=== PATIENT | male | born 1995 | race Caucasian/White ===

== ENCOUNTER 2017-02-19 17:04 | Inpatient (IN) | payer BC, SELFPAY ==
--- NOTE | ~2017-02-19 | EGD ---
EGD REPORT [facility] [address] [place]. [address] NAME: RY FLOWER : [birth year] STATUS : ADM IN PAT#: [id number] AGE: 21 ADM/REG DATE : 02/19/17 MR#: [id number] REPORT SERV DATE: 02/27/17 DICTATED BY: ARON ESPINOZA DATE: 02/27/17 REPORT STATUS : Draft [facility] DATE: 02/27/17 Endoscopy Center Patient Name: Ry Flower Date of : 1995 Attending MD: ARON ESPINOZA MD Procedure Date No Time: 02/27/2017 Procedure: Upper GI endoscopy Indications: Nausea with vomiting Referring MD: VARINDER CHOWDHURY MD Medicines: Propofol per Anesthesia Complications: No immediate complications. Estimated blood loss: None. Procedure: Pre-Anesthesia Assessment: - After reviewing the risks and benefits, the patient was deemed in satisfactory condition to undergo the procedure. - Prior to the procedure, a History and Physical was performed, and patient medications and allergies were reviewed. The patient's tolerance of previous anesthesia was also reviewed. The risks and benefits of the procedure and the sedation options and risks were discussed with the patient. All questions were answered, and informed consent was obtained. Prior Anticoagulants: The patient has taken no previous anticoagulant or antiplatelet agents. ASA Grade Assessment: I - A normal, healthy patient. After reviewing the risks and benefits, the patient was deemed in satisfactory condition to undergo the procedure. After obtaining informed consent, the endoscope was passed under direct vision. Throughout the procedure, the patient's blood pressure, pulse, and oxygen saturations were monitored continuously. The GIF [id number] was introduced through the mouth, and advanced to the jejunum. The upper GI endoscopy was accomplished without difficulty. The patient tolerated the procedure well. Findings: Savary-Owens Grade II (multiple lesions and folds, noncircumferential, with or without confluence) esophagitis with no bleeding was found. The entire examined stomach and gastroesophageal junction (on retroflexion) were normal. A moderate amount of bile was seen in the body of the stomach and suctioned. The examined duodenum was normal. Biopsies were taken with a cold forceps for histology. Estimated blood loss: none. EGD REPORT [address] [address] NAME: RY FLOWER : [birth year] STATUS : ADM IN [facility]#: [id number] AGE: 21 ADM/REG DATE : 02/19/17 MR#: [id number] REPORT SERV DATE: 02/27/17 DICTATED BY: ARON ESPINOZA DATE: 02/27/17 REPORT STATUS : Draft TRANSCRIBED BY: [employer] DATE: 02/27/17 Impression: - Savary-Owens Grade II reflux esophagitis. - Normal stomach and gastroesophageal junction. - Normal examined duodenum. Biopsied. Recommendation: - Return [facility] to [facility]. - Aggressive PPI therapy. - Await pathology results. - Perform a colonoscopy today. - Patient has a contact number available for emergencies. The signs and symptoms of potential delayed complications were discussed with the patient. Return to normal activities tomorrow. Written discharge instructions were provided to the patient. Procedure Code(s): --- Professional --- 24711, Esophagogastroduodenoscopy, flexible, transoral; with biopsy, single or multiple Diagnosis Code(s): --- Professional --- K21.0, Gastro-esophageal reflux disease with esophagitis R11.2, Nausea with vomiting, unspecified CPT copyright 2013 [employer]. All rights reserved. The codes documented in this report are preliminary and upon roving can tender review may be revised to meet current compliance requirements. ARON ESPINOZA MD 02/27/2017 4:43 PM This report has been signed electronically. Number of Addenda: 0 Note Initiated On: 02/27/2017 4:30 PM Scope Withdrawal Time 0 hours 0 minutes 0 seconds [address] [place] [address]
--- NOTE | ~2017-02-19 | EGD ---
EGD REPORT [facility] [address] [address] NAME: RY FLOWER : [birth year] STATUS : ADM IN PAT#: [id number] AGE: 21 ADM/REG DATE : 02/19/17 MR#: [id number] REPORT SERV DATE: 02/27/17 DICTATED BY: ARON ESPINOZA DATE: 02/27/17 REPORT STATUS : Draft [facility]: [facility] DATE: 02/27/17 Endoscopy Center Patient Name: Ry Flower Date of : 1995 Attending MD: ARON ESPINOZA MD Procedure Date No Time: 02/27/2017 Procedure: Colonoscopy Indications: Hematochezia, Chronic diarrhea, C. difficile colitis Referring MD: VARINDER CHOWDHURY MD Medicines: Propofol per Anesthesia Complications: No immediate complications. Estimated blood loss: Minimal. Procedure: Pre-Anesthesia Assessment: - After reviewing the risks and benefits, the patient was deemed in satisfactory condition to undergo the procedure. - Prior to the procedure, a History and Physical was performed, and patient medications and allergies were reviewed. The patient's tolerance of previous anesthesia was also reviewed. The risks and benefits of the procedure and the sedation options and risks were discussed with the patient. All questions were answered, and informed consent was obtained. Prior Anticoagulants: The patient has taken no previous anticoagulant or antiplatelet agents. ASA Grade Assessment: I - A normal, healthy patient. After reviewing the risks and benefits, the patient was deemed in satisfactory condition to undergo the procedure. After I obtained informed consent, the scope was passed under direct vision. Throughout the procedure, the patient's blood pressure, pulse, and oxygen saturations were monitored continuously. The CF [id number] was introduced through the anus and advanced to the terminal ileum, with identification of the appendiceal orifice and IC valve. The colonoscopy was performed with ease. The ileocecal valve, appendiceal orifice and terminal ileum were photographed. The patient tolerated the procedure well. The quality of the bowel preparation was adequate. The bowel preparation used was oral MOM and a tap water enema. Scope withdrawal time was nearly 8 minutes. Findings: The perianal and digital rectal examinations were normal. Pertinent negatives include normal sphincter tone. EGD REPORT [address] [address] NAME: RY FLOWER : [birth year] STATUS : ADM IN [facility]#: [id number] AGE: 21 ADM/REG DATE : 02/19/17 MR#: [id number] REPORT SERV DATE: 02/27/17 DICTATED BY: ARON ESPINOZA DATE: 02/27/17 REPORT STATUS : Draft TRANSCRIBED BY: [employer] DATE: 02/27/17 The terminal ileum appeared normal. Diffuse severe inflammation characterized by altered vascularity, congestion (edema), erythema, granularity, confluent ulcerations and serpentine ulcerations was found in the rectum, in the sigmoid colon, in the descending colon, in the transverse colon, in the ascending colon and in the cecum. Deep confluent ulcerations were more evident in the left colon. Impression: - The examined portion of the ileum was normal. - Diffuse severe inflammation was found in the rectum, in the sigmoid colon, in the descending colon, in the transverse colon, in the ascending colon and in the cecum secondary to pancolitis. Suspect IBD. - C. difficile colitis. Recommendation: - Return patient to [facility] for ongoing care. - Advance diet. - Continue Vancomycin 250 mg QID. - Continue probiotic. - Add Solumedrol 30 mg IV every 12 hours. - F/U biopsies. - F/U IBD serologies. Procedure Code(s): --- Professional --- 55359, Colonoscopy, flexible, proximal to splenic flexure; diagnostic, with or without collection of specimen(s) by brushing or washing, with or without colon decompression (separate procedure) Diagnosis Code(s): --- Professional --- K52.9, Noninfective gastroenteritis and colitis, unspecified K92.1, Melena CPT copyright 2013 [employer]. All rights reserved. The codes documented in this report are preliminary and upon compliance assistant review may be revised to meet current compliance requirements. ARON ESPINOZA MD 02/27/2017 5:11 PM This report has been signed electronically. Number of Addenda: 0 Note Initiated On: 02/27/2017 4:41 PM EGD REPORT [facility] [address] [place] [address] NAME: LOWELLRY REEDER : [birth year] STATUS : ADM IN PAT#: [id number] AGE: 21 ADM/REG DATE : 02/19/17 MR#: [id number] REPORT SERV DATE: 02/27/17 DICTATED BY: ARON ESPINOZA DATE: 02/27/17 REPORT STATUS : Draft TRANSCRIBED BY: [employer] DATE: 02/27/17 Scope Withdrawal Time 0 hours 7 minutes 59 seconds [address] [address]
--- NOTE | ~2017-02-19 | CN ---
Consultation Report [facility] [address] [place]. [address] NAME: VANI ETIENNE : [birth year] STATUS : ADM IN [facility]#: [id number] AGE: 21 ADM/REG DATE : 02/19/17 MR#: [id number] REPORT SERV DATE: 02/20/17 DICTATED BY: AUSTYN MARINO DATE: 02/20/17 REPORT STATUS : Draft TRANSCRIBED BY: [employer] DATE: 02/20/17 DATE OF CONSULTATION: 02/20/2017 HISTORY OF PRESENT ILLNESS: This is a 21-year-old white male I am seeing for Dr. Tyrel Jerry. The patient has had diarrhea for the last week. Had been on some p.o. Flagyl which he had not tolerated well. Outpatient diagnosis of C. diff. Began having lot of nausea and vomiting. Also began having some bleeding per rectum and the diarrhea persisted. No fever. Hospitalist then converted to IV Flagyl and p.o. vancomycin. Nausea and vomiting persisted last night, it is somewhat better today. He is having 15 to 16 stools daily mixed with blood. He was given at [facility] a week ago some IV fluids and some Levsin and some Zofran. He has lost about 12 pounds over the last couple of weeks. PAST HISTORY: He has taken a quite number of antibiotics for clindamycin and rifampin for acne. ALLERGIES: HE IS ALLERGIC TO . PAST SURGICAL HISTORY: Adenoids removed. SOCIAL HISTORY: Negative EtOH or nicotine. FAMILY HISTORY: Negative for IBD. Negative for colon cancer. PHYSICAL EXAMINATION: GENERAL: Well-developed, well-nourished, white male, alert and oriented x3. HEENT: Anicteric. NECK: Negative. CHEST: Clear to percussion. HEART: Regular rate and rhythm without murmur or gallop. ABDOMEN: Soft. Mild tenderness in the left lower quadrant. Bowel sounds active. EXTREMITIES: Grossly intact. NEUROLOGIC: Grossly intact. LABORATORY DATA: White count of 11,500, hemoglobin 13.9. ASSESSMENT: 1. Clostridium difficile diarrhea. 2. Gastrointestinal bleed, rectal bleeding. 3. Nausea and vomiting. 4. Dehydration. PLAN: Continue his current IV Flagyl and p.o. vancomycin. Continue IV hydration. We will also begin probiotics because of the amount of bleeding, may well need colonoscopy once he is cleared of C. diff to evaluate the bleeding. Consultation Report [facility] [address] [place] [address]. [address] NAME: VANI ETIENNE : [birth year] STATUS : ADM IN PAT#: [id number] AGE: 21 ADM/REG DATE : 02/19/17 MR#: [id number] REPORT SERV DATE: 02/20/17 DICTATED BY: AUSTYN MARINO DATE: 02/20/17 REPORT STATUS : Draft TRANSCRIBED BY: JEANNE DATE: 02/20/17 Thank you very much for the consultation. DC/JEANNE Austyn Marino M.D. / [id number] CC: MD Kunal Sheldon M.D. Alan Shikoh, M.D.
--- NOTE | ~2017-02-19 | DS ---
Discharge Summary [facility] [address] [place]. [address] NAME: VANI ETIENNE : [birth year] STATUS : DIS IN PAT#: [id number] AGE: 21 ADM/REG DATE : 02/19/17 MR#: [id number] REPORT SERV DATE: 03/02/17 DICTATED BY: MEGHAN GRANT MOSES DATE: 03/01/17 REPORT STATUS : Draft TRANSCRIBED BY: MODL DATE: 03/01/17 ADMISSION DATE: 02/19/2017 DISCHARGE DATE: 03/01/2017 This dictation is an addition to interim discharge summary dictated by Dr. Kang on 02/23/2017. HOSPITAL COURSE: I assumed care of patient on 02/24/2017. At the time of my assumption of care, GI was already following patient. Thought process at that time, patient was diagnosed with C.diff colitis, which was refractory to metronidazole. Patient was currently on vancomycin and dose has been increased by GI. Colonoscopy was not done at that time because of severe infection. Patient was status post increasing vancomycin. Patient's symptoms progressively started to improve. Given the improvement, GI decided to do an upper and lower endoscopy. The upper endoscopy was relatively normal; however, the lower endoscopy noted pancolitis with deep confluent ulcerations. However, injury did spare the terminal ilium. Patient continued to improve, remained hemodynamically stable, was started on p.o. diet which he has tolerated. Given his remarkable improvement, patient has been cleared by GI for discharge. He remained hemodynamically stable and from the hospitalist standpoint, patient will be discharged with close followup with GI for outpatient continuation of management. Plan has been discussed with patient and family who voiced understanding and are agreeable with this plan. DISCHARGE DIAGNOSES: 1. Pancolitis. 2. Clostridium difficile colitis. 3. Nausea, vomiting. 4. Tachycardia. DISCHARGE PHYSICAL EXAMINATION: VITAL SIGNS: Blood pressure 111/59 with a pulse of 61, respirations 12, O2 saturation at 98%. GENERAL: Patient lying in bed, in no acute distress. Appears his pleasant self, very conversational. HEENT: Normocephalic and atraumatic. Extraocular motors intact. Moist oral mucosa. Pupils round and reactive to light and accommodation. Anicteric sclerae. NECK: Trachea midline and symmetric. No JVD noted. No thyromegaly present. No lymphadenopathy noted. CHEST: Nontender to palpation. Well-healed lesions secondary to acne noted. CARDIOVASCULAR: Regular rate and rhythm. S1, S2. No murmurs, rubs, or gallops. LUNGS: Clear to auscultation bilaterally. No added breath sounds. ABDOMEN: Positive bowel sounds. Nontender. Nondistended. EXTREMITIES: No cyanosis, no clubbing, no edema. NEUROLOGIC: Alert and oriented x3. No focal deficits appreciated. DISCHARGE MEDICATIONS: Vancomycin 125 mg p.o. q.6 hours for two weeks, prednisone taper. PROCEDURES: EGD performed 02/27/2017, impression: Flor grade 2 reflux esophagitis, Discharge Summary [address] [address] NAME: VANI ETIENNE : [birth year] STATUS : DIS IN PAT#: [id number] AGE: 21 ADM/REG DATE : 02/19/17 MR#: [id number] REPORT SERV DATE: 03/02/17 DICTATED BY: MEGHAN GRANT DATE: 03/01/17 REPORT STATUS : Draft TRANSCRIBED BY: JEANNE DATE: 03/01/17 normal stomach and gastroesophageal junction, normal examined duodenum. Colonoscopy on 02/27/2017, impression: The examined portion of the ilium was normal, diffuse severe inflammation was found in the rectum, in the sigmoid colon, in the descending colon, in the transverse colon, in the ascending colon, and in the cecal secondary to pancolitis, suspect IBD C.diff colitis. DISPOSITION: Patient will be discharged home to follow up with GI in 2 days. ACTIVITY: As tolerated. DIET: As tolerated. Greater than 30 minutes was spent providing counseling, coordinating discharge, dictation of note, writing medication reconciliation. GEORGETTE/JEANNE Meghan Grant MD / [id number] CC: MD Kunal Devine M.D.
--- NOTE | ~2017-02-19 | IDS ---
Interim Discharge Summary [facility] [address] [place]. [address] NAME: VANI ETIENNE : [birth year] STATUS : ADM IN PAT#: [id number] AGE: 21 ADM/REG DATE : 02/19/17 MR#: [id number] REPORT SERV DATE: 02/23/17 DICTATED BY: SHELTON KANG DATE: 02/23/17 REPORT STATUS : Draft TRANSCRIBED BY: MODL DATE: 02/23/17 ADMISSION DATE: 02/19/2017 DISCHARGE DATE: Date of dictation is 02/23/2017. REASON FOR ADMISSION: Direct admission from Dr. Peters's office for nausea, vomiting, dehydration, C. difficile colitis not responding to Flagyl. HISTORY OF PRESENT ILLNESS: Please refer to my history and physical dated 02/20/2017, for complete details regarding the patient's admission. In brief, the patient was admitted to the hospitalist service as a direct admission from Dr. Peters's office for C. difficile colitis. HOSPITAL COURSE: The patient was admitted by myself and started on IV fluids. He had already had a C. difficile panel that was done by Dr. Peters dated 02/13/2017, which showed toxigenic strain of C. difficile colitis. He had already been on Flagyl as an outpatient but was not tolerating it well with nausea and vomiting. He was started on oral vancomycin in the hospital. 1. C. difficile colitis. This is the patient's first episode of C. difficile colitis. He was not tolerating Flagyl as an outpatient, and he was started on vancomycin 125 mg q.i.d. He was still having some nausea and vomiting and it was unclear to me as to whether or not he was keeping down his vancomycin and therefore IV Flagyl was started in the hospital on the second day of admission. He continues to be currently on IV Flagyl and vancomycin. The patient was having some bloody diarrhea, and I had curbsided Dr. Huber Yang who suggested getting GI involved as there could be some concern for underlying inflammatory bowel disease. GI Medicine was consulted. Dr. Jerry got the initial called but Dr. Solis was covering Dr. Jerry in his absence who had recommended continuing antibiotics and doing a colonoscopy after his C. diff has resolved. Over the weekend, Dr. Nieto had covered Dr. Jerry and did not have any further recommendations. The patient was not clinically improving as I anticipated, so I obtained a CT scan of his abdomen and pelvis, just to evaluate for any further issues. The patient had an IV contrasted study which showed diffuse thickening of the ascending, transverse, descending, and sigmoid colon, most consistent with a long segment infectious/inflammatory colitis. There was no pericolonic abscess. No obstruction pattern. Oral contrast reaches the rectal wall. There is a small amount of pelvic ascites. Over the weekend given the patient's nausea and vomiting, I had changed his p.r.n. antiemetics to scheduled for which he is getting Phenergan and Zofran alternating at every 3 hours. 2. Intractable nausea and vomiting. His vomiting seems to be improving although he did have one episode of vomiting yesterday and then one episode the day prior after drinking the contrast for his CT scan. His nausea was not improving with p.r.n. antiemetics and therefore I had switched him to scheduled for which he is getting Phenergan and Zofran every 3 hours. His nausea does seem to be improving but is still present. 3. Inflammatory colitis seen on CT scan. I am concerned that the patient may have some Interim Discharge Summary [address] [address] NAME: VANI ETIENNE : [birth year] STATUS : ADM IN [facility]#: [id number] AGE: 21 ADM/REG DATE : 02/19/17 MR#: [id number] REPORT SERV DATE: 02/23/17 DICTATED BY: SHELTON KANG DATE: 02/23/17 REPORT STATUS : Draft TRANSCRIBED BY: MODL DATE: 02/23/17 underlying undiagnosed inflammatory bowel disease such as Crohn's which precipitated his C. difficile colitis. Given the fact that he is not clinically improving as anticipated, I did discuss the patient's case again with Dr. Jerry who will be seeing the patient today, and I wonder if he needs to have an EGD and a colonoscopy done as inhouse as opposed to waiting for it to be done as an outpatient or to empirically treat for IBD to see if his condition would resolve. 4. Bloody diarrhea. Again, this might be more consistent with inflammatory bowel disease rather than C. difficile colitis. Initially he had some bright red blood with some dark red spots prior to admission, but now he is having more dark blood as the patient interprets it. He is having multiple bowel movements still even in the face of several days worth of IV Flagyl and vancomycin. 5. Weight loss. He has been having a significant weight loss of around 12 to 20 pounds over the time period over the past couple of weeks secondary to his nausea and vomiting. I also wonder if this is a sign of inflammatory bowel disease. We will check a pre-albumin today. Nutritionally he seems to be able to keep some foods down. Discussed with his nurse today about possibly placing an NG tube with some tube feeds but I feel like he is able to keep certain foods down. DISPOSITION: The patient will be eventually discharged home. He has a prescription for vancomycin in the chart which will cost him around 15 dollars. I anticipate that his hospitalization to have been more smoothly and to have been discharged by now; however, he continues to have some nausea with some vomiting along with persistent diarrhea. FOLLOWUP: The patient will remain in the hospital. Dr. Cedeno to assume care of this patient on 02/24/2017. We would anticipate discharging home when he is able to tolerate more food. GABRIEL/JEANNE Shelton Kang MD / [id number] CC: MD Kunal Sheldon M.D.
--- NOTE | ~2017-02-19 | EGD ---
EGD REPORT [facility] [address] [address] NAME: RY FLOWER : [birth year] STATUS : ADM IN PAT#: [id number] AGE: 21 ADM/REG DATE : 02/19/17 MR#: [id number] REPORT SERV DATE: 02/27/17 DICTATED BY: ARON ESPINOZA DATE: 02/27/17 REPORT STATUS : Draft [facility]ANSCRIBED [facility]: [facility] DATE: 02/27/17 [facility] Center Patient Name: Ry Flower Date of : 1995 Attending MD: ARON ESPINOZA MD Procedure Date No Time: 02/27/2017 Procedure: Colonoscopy Indications: Hematochezia, Chronic diarrhea, C. difficile colitis Referring MD: VARINDER CHOWDHURY MD Medicines: Propofol per Anesthesia Complications: No immediate complications. Estimated blood loss: Minimal. Procedure: Pre-Anesthesia Assessment: - After reviewing the risks and benefits, the patient was deemed in satisfactory condition to undergo the procedure. - Prior to the procedure, a History and Physical was performed, and patient medications and allergies were reviewed. The patient's tolerance of previous anesthesia was also reviewed. The risks and benefits of the procedure and the sedation options and risks were discussed with the patient. All questions were answered, and informed consent was obtained. Prior Anticoagulants: The patient has taken no previous anticoagulant or antiplatelet agents. ASA Grade Assessment: I - A normal, healthy patient. After reviewing the risks and benefits, the patient was deemed in satisfactory condition to undergo the procedure. After I obtained informed consent, the scope was passed under direct vision. Throughout the procedure, the patient's blood pressure, pulse, and oxygen saturations were monitored continuously. The CF [id number] was introduced through the anus and advanced to the terminal ileum, with identification of the appendiceal orifice and IC valve. The colonoscopy was performed with ease. The ileocecal valve, appendiceal orifice and terminal ileum were photographed. The patient tolerated the procedure well. The quality of the bowel preparation was adequate. The bowel preparation used was oral MOM and a tap water enema. Scope withdrawal time was nearly 8 minutes. Findings: The perianal and digital rectal examinations were normal. Pertinent negatives include normal sphincter tone. EGD REPORT [address] [address] NAME: RY FLOWER : [birth year] STATUS : ADM IN [facility]#: [id number] AGE: 21 ADM/REG DATE : 02/19/17 MR#: [id number] REPORT SERV DATE: 02/27/17 DICTATED BY: ARON ESPINOZA DATE: 02/27/17 REPORT STATUS : Draft TRANSCRIBED BY: [employer] DATE: 02/27/17 The terminal ileum appeared normal. Diffuse severe inflammation characterized by altered vascularity, congestion (edema), erythema, granularity, confluent ulcerations and serpentine ulcerations was found in the rectum, in the sigmoid colon, in the descending colon, in the transverse colon, in the ascending colon and in the cecum. Deep confluent ulcerations were more evident in the left colon. Impression: - The examined portion of the ileum was normal. - Diffuse severe inflammation was found in the rectum, in the sigmoid colon, in the descending colon, in the transverse colon, in the ascending colon and in the cecum secondary to pancolitis. Suspect IBD. - C. difficile colitis. Recommendation: - Return patient to [facility] for ongoing care. - Advance diet. - Continue Vancomycin 250 mg QID. - Continue probiotic. - Add Solumedrol 30 mg IV every 12 hours. - F/U biopsies. - F/U IBD serologies. Procedure Code(s): --- Professional --- 97577, Colonoscopy, flexible, proximal to splenic flexure; diagnostic, with or without collection of specimen(s) by brushing or washing, with or without colon decompression (separate procedure) Diagnosis Code(s): --- Professional --- K52.9, Noninfective gastroenteritis and colitis, unspecified K92.1, Melena CPT copyright 2013 [employer]. All rights reserved. The codes documented in this report are preliminary and upon medical biller/coder review may be revised to meet current compliance requirements. ARON ESPINOZA MD 02/27/2017 5:11 PM This report has been signed electronically. Number of Addenda: 0 Note Initiated On: 02/27/2017 4:41 PM EGD REPORT [facility] [address] [place]. [place] [address] NAME: LOWELLRY REEDER : [birth year] STATUS : ADM IN PAT#: [id number] AGE: 21 ADM/REG DATE : 02/19/17 MR#: [id number] REPORT SERV DATE: 02/27/17 DICTATED BY: ARON ESPINOZA DATE: 02/27/17 REPORT STATUS : Draft TRANSCRIBED BY: [employer] DATE: 02/27/17 Scope Withdrawal Time 0 hours 7 minutes 59 seconds [address] [id number]
--- NOTE | ~2017-02-19 | HP ---
History And Physical [place] [id number] [place]. [address] NAME: VANI ETIENNE : [birth year] STATUS : ADM IN [facility]#: [id number] AGE: 21 ADM/REG DATE : 02/19/17 MR#: [id number] REPORT SERV DATE: 02/20/17 DICTATED BY: SHELTON KANG DATE: 02/19/17 REPORT STATUS : Draft TRANSCRIBED BY: MODIman DATE: 02/19/17 DATE OF ADMISSION: 02/19/2017 REASON FOR ADMISSION: Direct admission from Dr. Peters's office for nausea, vomiting, dehydration, C. diff colitis, not responding to Flagyl. CHIEF COMPLAINT: "I have been still having diarrhea and a lot of nausea, can't keep my pills down." HISTORY OF PRESENT ILLNESS: A 21-year-old white male with a history of acne who had been on clindamycin and rifampin for a long time, but for the past year with recently diagnosed with C. diff on 02/14/2017 and started him on Flagyl by Dr. Peters. Since then, the patient has been still having diarrhea and a lot of nausea and vomiting and dehydration and unable to keep his Flagyl down. He presented as a direct admit for IV fluids and treatment of his C. diff colitis. The patient states that he has been off his clindamycin that was prescribed by Dr. Jovani bhardwaj over a year. He initially started having some crampy abdominal pain, nausea, vomiting, and diarrhea and bloody bowel movements, and presented to an Urgent Care and they diagnosed him with hemorrhoids. He continued to have this problem then went to Dr. Peters's office and was diagnosed with a toxigenic strain of C diff and started on Flagyl. The patient denies any recent antibiotic use prior to starting Flagyl or any sick contacts or recent hospitalizations. He said he went to the [facility] ER for dehydration and was given a bag of fluids it is at home. The patient does note some back pain but no dysuria. No chest pain. No shortness of breath. REVIEW OF SYSTEMS: As per HPI. Otherwise, 10-point system were reviewed and are negative. PAST MEDICAL HISTORY: Acne treated with long-term clindamycin but he has been off for the past year. PAST SURGICAL HISTORY: Adenoidectomy. FAMILY HISTORY: Positive for obesity. SOCIAL HISTORY: Denies any alcohol, illicit drug use IV, smoking. Lives at home with his parents. 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 MEDICATIONS: Include Levsin p.r.n. stomach pain, Flagyl 500 mg three times a day, Zofran p.r.n. nausea, and probiotic. PHYSICAL EXAMINATION: VITAL SIGNS: On exam, blood pressure 125/67, temperature 98.1, pulse is 103, respirations 18. GENERAL: He is no acute distress. Very pleasant accompanied by his mother and father. HEENT: Normocephalic and atraumatic head. Extraocular muscles intact. Oropharynx clear. NECK: Supple. No JVD. History And Physical [address] [address] NAME: VANI ETIENNE : [birth year] STATUS : ADM IN [facility]#: [id number] AGE: 21 ADM/REG DATE : 02/19/17 MR#: [id number] REPORT SERV DATE: 02/20/17 DICTATED BY: SHELTON KANG DATE: 02/19/17 REPORT STATUS : Draft TRANSCRIBED BY: JEANNE DATE: 02/19/17 CARDIAC: Regular rhythm. No murmurs, rubs, or gallops. PULMONARY: Clear to auscultation bilaterally. ABDOMEN: Soft, nontender, and nondistended. Positive bowel sounds. EXTREMITIES: Show no clubbing, cyanosis, or edema. SKIN: Warm and dry. There are multiple acne lesions on his back and neck. PSYCHIATRIC: The patient is cooperative. Mood is appropriate. NEUROLOGIC: No focal deficits. LABORATORY DATA: Labs are pending but show toxigenic strain of C. diff on 02/13/2017. IMPRESSION: 1. Clostridium difficile colitis. Unable to tolerate Flagyl. 2. Nausea and vomiting. 3. Dehydration. 4. History of acne. PLAN: The plan is to do IV fluids. We will check a CBC, CMP, blood cultures, lactic acid, procalcitonin. We will start him on vancomycin 125 mg q.i.d. if he continues to have any back pain, may consider doing a CT scan of his back or abdomen but we will hold off to see if it improves with treatment despite the patient being discharged home soon. GABRIEL/JEANNE Shelton Kang MD / [id number] CC: MD Kunal Sheldon M.D.
[2017-02-19] MEDS ORDERED: PROBIOTIC CAPSULE PO (17:48)
[2017-02-19] MEDS ORDERED: ZOFRAN ODT4 MG PO (17:48)
[2017-02-19] MEDS ORDERED: FLAG500TAB PO (17:48)
[2017-02-19] MEDS ORDERED: LEVSINTAB PO (17:49)
[2017-02-19 19:36] LABS: ALKALINE PHOSPHATASE 84 U/L (45-117); CALCIUM, SERUM 9.2 MG/DL (8.5-10.4); CHLORIDE, SERUM 103 MMOL/L (96-112); CO2 (CARBON DIOXIDE) 29 MMOL/L (24-34); CREATININE 0.83 MG/DL (0.70-1.30); GFR AFRICAN AMERICAN 147 ML/MIN (>=60); GFR NON AFRICAN AMERICAN 127 ML/MIN (>=60); GLOBULIN 3.9 G/DL (2.5-4.1); GLUCOSE, SERUM 87 MG/DL (60-99); PHOSPHORUS, SERUM 3.5 MG/DL (2.5-4.5); POTASSIUM, SERUM 3.7 MMOL/L (3.5-5.3); SGOT(AST) 25 U/L (5-40); SGPT(ALT) 30 U/L (5-65); SODIUM, SERUM 139 MMOL/L (135-148); TOTAL BILIRUBIN 0.5 MG/DL (0-1.2); TOTAL PROTEIN 7.9 G/DL (6.0-8.5)
[2017-02-19 19:37] LABS: BUN (BLOOD UREA NITROGEN) 5 MG/DL (6-23)
[2017-02-19 19:45] LABS: BASOPHILS 0.4 %; BASOPHILS ABSOLUTE 0.03 10/3/uL (0.0-0.16); EOSINOPHILS 0.7 %; EOSINOPHILS ABSOLUTE 0.05 10/3/uL (0.0-0.53); HEMATOCRIT 47.4 % (40.0-51.0); HEMOGLOBIN 17.1 g/dL (13.6-17.8); IMMATURE GRANULOCYTES 0.1 %; IMMATURE GRANULOCYTES ABSOLUTE 0.01 10/3/uL (0.0-0.11); LYMPHOCYTES ABSOLUTE 1.42 10/3/uL (0.67-4.30); MEAN CORPUS HGB CONC 36.1 g/dL (32.0-36.0); MEAN CORPUSCULAR HEMOGLOB 31.4 pg (26.0-34.0); MEAN CORPUSCULAR VOLUME 87.1 fL (80-100); MEAN PLATELET VOLUME 8.5 fL (9.2-13.0); MONOCYTES 7.4 %; NEUTROPHILS 70.4 %; NEUTROPHILS ABSOLUTE 4.75 10/3/uL (2.02-8.40); RBC DISTRIBUTION WIDTH 12.7 % (12.0-16.0); RED CELL COUNT 5.44 10/6/uL (4.7-6.1); WHITE BLOOD CELLS 6.8 10/3/uL (4.5-10.5)
[2017-02-19 19:46] LABS: MANUAL DIFF NO %; PLATELET COUNT 299 10/3/uL (150-400)
[2017-02-19 20:33] LABS: PROCALCITONIN 0.05 ng/mL (<0.5)
[2017-02-20 03:48] LABS: BASOPHILS 0.3 %; BASOPHILS ABSOLUTE 0.04 10/3/uL (0.0-0.16); EOSINOPHILS 0.9 %; HEMOGLOBIN 13.9 g/dL (13.6-17.8); IMMATURE GRANULOCYTES 0.2 %; IMMATURE GRANULOCYTES ABSOLUTE 0.02 10/3/uL (0.0-0.11); LYMPHOCYTES 15.1 %; LYMPHOCYTES ABSOLUTE 1.74 10/3/uL (0.67-4.30); MEAN CORPUS HGB CONC 35.7 g/dL (32.0-36.0); MEAN CORPUSCULAR HEMOGLOB 31.1 pg (26.0-34.0); MEAN PLATELET VOLUME 8.7 fL (9.2-13.0); MONOCYTES 9.4 %; MONOCYTES ABSOLUTE 1.08 10/3/uL (0.21-1.20); NEUTROPHILS 74.1 %; NEUTROPHILS ABSOLUTE 8.53 10/3/uL (2.02-8.40); PLATELET COUNT 266 10/3/uL (150-400); RBC DISTRIBUTION WIDTH 12.9 % (12.0-16.0); RED CELL COUNT 4.47 10/6/uL (4.7-6.1)
[2017-02-20 03:49] LABS: HEMATOCRIT 38.9 % (40.0-51.0); MANUAL DIFF NO %; WHITE BLOOD CELLS 11.5 10/3/uL (4.5-10.5)
[2017-02-20 04:01] LABS: BUN (BLOOD UREA NITROGEN) 5 MG/DL (6-23); CALCIUM, SERUM 8.3 MG/DL (8.5-10.4); CHLORIDE, SERUM 108 MMOL/L (96-112); CO2 (CARBON DIOXIDE) 25 MMOL/L (24-34); CREATININE 0.75 MG/DL (0.70-1.30); GFR AFRICAN AMERICAN 153 ML/MIN (>=60); GFR NON AFRICAN AMERICAN 132 ML/MIN (>=60); GLUCOSE, SERUM 97 MG/DL (60-99); SODIUM, SERUM 141 MMOL/L (135-148)
[2017-02-21 06:38] LABS: BASOPHILS 0.4 %; BASOPHILS ABSOLUTE 0.04 10/3/uL (0.0-0.16); EOSINOPHILS 1.9 %; EOSINOPHILS ABSOLUTE 0.19 10/3/uL (0.0-0.53); HEMATOCRIT 41.5 % (40.0-51.0); HEMOGLOBIN 15.2 g/dL (13.6-17.8); IMMATURE GRANULOCYTES 0.3 %; IMMATURE GRANULOCYTES ABSOLUTE 0.03 10/3/uL (0.0-0.11); LYMPHOCYTES 13.2 %; LYMPHOCYTES ABSOLUTE 1.29 10/3/uL (0.67-4.30); MEAN CORPUS HGB CONC 36.6 g/dL (32.0-36.0); MEAN CORPUSCULAR HEMOGLOB 32.1 pg (26.0-34.0); MEAN CORPUSCULAR VOLUME 87.6 fL (80-100); MEAN PLATELET VOLUME 8.7 fL (9.2-13.0); MONOCYTES ABSOLUTE 1.18 10/3/uL (0.21-1.20); NEUTROPHILS 72.2 %; NEUTROPHILS ABSOLUTE 7.07 10/3/uL (2.02-8.40); PLATELET COUNT 284 10/3/uL (150-400); RBC DISTRIBUTION WIDTH 13.1 % (12.0-16.0); RED CELL COUNT 4.74 10/6/uL (4.7-6.1); WHITE BLOOD CELLS 9.8 10/3/uL (4.5-10.5)
[2017-02-21 06:40] LABS: MANUAL DIFF NO %
[2017-02-21 06:52] LABS: BUN (BLOOD UREA NITROGEN) 5 MG/DL (6-23); CHLORIDE, SERUM 106 MMOL/L (96-112); CO2 (CARBON DIOXIDE) 25 MMOL/L (24-34); CREATININE 0.76 MG/DL (0.70-1.30); GFR AFRICAN AMERICAN 152 ML/MIN (>=60); GFR NON AFRICAN AMERICAN 131 ML/MIN (>=60); GLUCOSE, SERUM 101 MG/DL (60-99); PHOSPHORUS, SERUM 3.5 MG/DL (2.5-4.5); POTASSIUM, SERUM 3.7 MMOL/L (3.5-5.3); SODIUM, SERUM 138 MMOL/L (135-148)
[2017-02-22 06:59] LABS: BASOPHILS 0.2 %; BASOPHILS ABSOLUTE 0.02 10/3/uL (0.0-0.16); EOSINOPHILS 3.2 %; EOSINOPHILS ABSOLUTE 0.28 10/3/uL (0.0-0.53); HEMATOCRIT 39.4 % (40.0-51.0); IMMATURE GRANULOCYTES 0.1 %; IMMATURE GRANULOCYTES ABSOLUTE 0.01 10/3/uL (0.0-0.11); LYMPHOCYTES 11.3 %; LYMPHOCYTES ABSOLUTE 0.98 10/3/uL (0.67-4.30); MEAN CORPUS HGB CONC 35.5 g/dL (32.0-36.0); MEAN CORPUSCULAR HEMOGLOB 31.3 pg (26.0-34.0); MEAN CORPUSCULAR VOLUME 88.1 fL (80-100); MEAN PLATELET VOLUME 8.9 fL (9.2-13.0); MONOCYTES 13.9 %; NEUTROPHILS 71.3 %; NEUTROPHILS ABSOLUTE 6.15 10/3/uL (2.02-8.40); PLATELET COUNT 270 10/3/uL (150-400); RBC DISTRIBUTION WIDTH 13.2 % (12.0-16.0); RED CELL COUNT 4.47 10/6/uL (4.7-6.1); WHITE BLOOD CELLS 8.6 10/3/uL (4.5-10.5)
[2017-02-22 07:06] LABS: MANUAL DIFF NO %
[2017-02-22 07:21] LABS: BUN (BLOOD UREA NITROGEN) 6 MG/DL (6-23); CALCIUM, SERUM 8.6 MG/DL (8.5-10.4); CHLORIDE, SERUM 105 MMOL/L (96-112); CO2 (CARBON DIOXIDE) 27 MMOL/L (24-34); CREATININE 0.74 MG/DL (0.70-1.30); GFR AFRICAN AMERICAN 154 ML/MIN (>=60); GFR NON AFRICAN AMERICAN 133 ML/MIN (>=60); GLUCOSE, SERUM 92 MG/DL (60-99); PHOSPHORUS, SERUM 2.8 MG/DL (2.5-4.5); POTASSIUM, SERUM 3.5 MMOL/L (3.5-5.3); SODIUM, SERUM 138 MMOL/L (135-148)
[2017-02-23 06:23] LABS: BASOPHILS 0.6 %; BASOPHILS ABSOLUTE 0.05 10/3/uL (0.0-0.16); EOSINOPHILS 3.1 %; EOSINOPHILS ABSOLUTE 0.27 10/3/uL (0.0-0.53); HEMATOCRIT 37.3 % (40.0-51.0); HEMOGLOBIN 13.4 g/dL (13.6-17.8); IMMATURE GRANULOCYTES 0.2 %; IMMATURE GRANULOCYTES ABSOLUTE 0.02 10/3/uL (0.0-0.11); LYMPHOCYTES 17.2 %; LYMPHOCYTES ABSOLUTE 1.51 10/3/uL (0.67-4.30); MANUAL DIFF NO %; MEAN CORPUS HGB CONC 35.9 g/dL (32.0-36.0); MEAN CORPUSCULAR HEMOGLOB 31.6 pg (26.0-34.0); MEAN PLATELET VOLUME 8.6 fL (9.2-13.0); MONOCYTES 11.9 %; MONOCYTES ABSOLUTE 1.05 10/3/uL (0.21-1.20); PLATELET COUNT 262 10/3/uL (150-400); RED CELL COUNT 4.24 10/6/uL (4.7-6.1); WHITE BLOOD CELLS 8.8 10/3/uL (4.5-10.5)
[2017-02-25 06:00] LABS: HEMATOCRIT 41.9 % (40.0-51.0); HEMOGLOBIN 15.1 g/dL (13.6-17.8); MANUAL DIFF YES %; MEAN CORPUSCULAR HEMOGLOB 31.5 pg (26.0-34.0); MEAN CORPUSCULAR VOLUME 87.3 fL (80-100); MEAN PLATELET VOLUME 8.8 fL (9.2-13.0); PLATELET COUNT 294 10/3/uL (150-400); RBC DISTRIBUTION WIDTH 13.1 % (12.0-16.0)
[2017-02-25 06:01] LABS: BUN (BLOOD UREA NITROGEN) 6 MG/DL (6-23); CALCIUM, SERUM 8.9 MG/DL (8.5-10.4); CHLORIDE, SERUM 103 MMOL/L (96-112); CO2 (CARBON DIOXIDE) 26 MMOL/L (24-34); GFR AFRICAN AMERICAN 157 ML/MIN (>=60); GFR NON AFRICAN AMERICAN 136 ML/MIN (>=60); GLUCOSE, SERUM 88 MG/DL (60-99); POTASSIUM, SERUM 3.8 MMOL/L (3.5-5.3); SGOT(AST) 26 U/L (5-40); SGPT(ALT) 26 U/L (5-65); SODIUM, SERUM 138 MMOL/L (135-148); TOTAL BILIRUBIN 0.4 MG/DL (0-1.2)
[2017-02-25 06:03] LABS: ALKALINE PHOSPHATASE 63 U/L (45-117); GLOBULIN 2.9 G/DL (2.5-4.1); TOTAL PROTEIN 5.9 G/DL (6.0-8.5)
[2017-02-25 06:32] LABS: BAND NEUTROPHILS 15 %; BASOPHILS 1 %; BASOPHILS ABSOLUTE (CALC) 0.09 10/3/uL (0.0-0.16); EOSINOPHILS 5 %; EOSINOPHILS ABSOLUTE (CALC) 0.45 10/3/uL (0.0-0.53); LYMPHOCYTES 16 %; LYMPHOCYTES ABSOLUTE (CALC) 1.44 10/3/uL (0.67-4.30); MONOCYTES 10 %; NEUTROPHILS ABSOLUTE (CALC) 6.12 10/3/uL (2.02-8.40); SEGMENTED NEUTROPHIL (0) 53 %; TOTAL NUCLEATED CELLS 100
[2017-02-25 06:33] LABS: PLATELET ESTIMATE ADQ (ADEQUATE); RBC MORPHOLOGY NORM (NORMAL)
[2017-02-26 06:22] LABS: BASOPHILS 0.3 %; BASOPHILS ABSOLUTE 0.03 10/3/uL (0.0-0.16); EOSINOPHILS 3.3 %; EOSINOPHILS ABSOLUTE 0.36 10/3/uL (0.0-0.53); HEMATOCRIT 40.5 % (40.0-51.0); HEMOGLOBIN 14.6 g/dL (13.6-17.8); IMMATURE GRANULOCYTES 0.3 %; IMMATURE GRANULOCYTES ABSOLUTE 0.03 10/3/uL (0.0-0.11); LYMPHOCYTES 14.7 %; LYMPHOCYTES ABSOLUTE 1.59 10/3/uL (0.67-4.30); MEAN CORPUSCULAR HEMOGLOB 31.4 pg (26.0-34.0); MEAN CORPUSCULAR VOLUME 87.1 fL (80-100); MEAN PLATELET VOLUME 8.7 fL (9.2-13.0); MONOCYTES 12.5 %; MONOCYTES ABSOLUTE 1.35 10/3/uL (0.21-1.20); NEUTROPHILS 68.9 %; NEUTROPHILS ABSOLUTE 7.44 10/3/uL (2.02-8.40); PLATELET COUNT 306 10/3/uL (150-400); RBC DISTRIBUTION WIDTH 13.2 % (12.0-16.0); RED CELL COUNT 4.65 10/6/uL (4.7-6.1); WHITE BLOOD CELLS 10.8 10/3/uL (4.5-10.5)
[2017-02-26 06:29] LABS: MANUAL DIFF NO %
[2017-02-26 06:35] LABS: A/G RATIO 0.8 (0.7-1.9); ALBUMIN 2.7 G/DL (3.5-5.0); ALKALINE PHOSPHATASE 60 U/L (45-117); BUN (BLOOD UREA NITROGEN) 5 MG/DL (6-23); CALCIUM, SERUM 8.5 MG/DL (8.5-10.4); CHLORIDE, SERUM 106 MMOL/L (96-112); CO2 (CARBON DIOXIDE) 27 MMOL/L (24-34); GFR AFRICAN AMERICAN 157 ML/MIN (>=60); GFR NON AFRICAN AMERICAN 136 ML/MIN (>=60); GLOBULIN 3.4 G/DL (2.5-4.1); GLUCOSE, SERUM 95 MG/DL (60-99); POTASSIUM, SERUM 3.9 MMOL/L (3.5-5.3); SGOT(AST) 37 U/L (5-40); SGPT(ALT) 36 U/L (5-65); SODIUM, SERUM 140 MMOL/L (135-148); TOTAL BILIRUBIN 0.3 MG/DL (0-1.2); TOTAL PROTEIN 6.1 G/DL (6.0-8.5)
[2017-02-27 07:01] LABS: A/G RATIO 0.8 (0.7-1.9); BUN (BLOOD UREA NITROGEN) 6 MG/DL (6-23); CALCIUM, SERUM 8.5 MG/DL (8.5-10.4); CHLORIDE, SERUM 101 MMOL/L (96-112); CO2 (CARBON DIOXIDE) 27 MMOL/L (24-34); CREATININE 0.75 MG/DL (0.70-1.30); GFR AFRICAN AMERICAN 153 ML/MIN (>=60); GFR NON AFRICAN AMERICAN 132 ML/MIN (>=60); GLOBULIN 3.7 G/DL (2.5-4.1); GLUCOSE, SERUM 105 MG/DL (60-99); POTASSIUM, SERUM 3.6 MMOL/L (3.5-5.3); SGOT(AST) 35 U/L (5-40); SGPT(ALT) 41 U/L (5-65); SODIUM, SERUM 135 MMOL/L (135-148); TOTAL BILIRUBIN 0.6 MG/DL (0-1.2); TOTAL PROTEIN 6.7 G/DL (6.0-8.5)
[2017-02-27 07:02] LABS: ALKALINE PHOSPHATASE 79 U/L (45-117)
[2017-02-27 07:21] LABS: BASOPHILS 0.9 %; BASOPHILS ABSOLUTE 0.07 10/3/uL (0.0-0.16); EOSINOPHILS 3.9 %; EOSINOPHILS ABSOLUTE 0.32 10/3/uL (0.0-0.53); HEMATOCRIT 43.6 % (40.0-51.0); HEMOGLOBIN 15.7 g/dL (13.6-17.8); IMMATURE GRANULOCYTES 0.1 %; IMMATURE GRANULOCYTES ABSOLUTE 0.01 10/3/uL (0.0-0.11); LYMPHOCYTES 19.6 %; MANUAL DIFF NO %; MEAN CORPUSCULAR HEMOGLOB 31.5 pg (26.0-34.0); MEAN CORPUSCULAR VOLUME 87.4 fL (80-100); MEAN PLATELET VOLUME 8.7 fL (9.2-13.0); MONOCYTES 12.6 %; MONOCYTES ABSOLUTE 1.03 10/3/uL (0.21-1.20); NEUTROPHILS 62.9 %; NEUTROPHILS ABSOLUTE 5.13 10/3/uL (2.02-8.40); PLATELET COUNT 325 10/3/uL (150-400); RBC DISTRIBUTION WIDTH 12.9 % (12.0-16.0); RED CELL COUNT 4.99 10/6/uL (4.7-6.1); WHITE BLOOD CELLS 8.2 10/3/uL (4.5-10.5)
[2017-02-27 18:16] LABS: C-REACTIVE PROTEIN 18.9 MG/L (<8.0)
[2017-02-28 06:57] LABS: BASOPHILS 0.5 %; BASOPHILS ABSOLUTE 0.03 10/3/uL (0.0-0.16); EOSINOPHILS 0.3 %; EOSINOPHILS ABSOLUTE 0.02 10/3/uL (0.0-0.53); HEMATOCRIT 43.9 % (40.0-51.0); HEMOGLOBIN 15.9 g/dL (13.6-17.8); IMMATURE GRANULOCYTES 0.2 %; IMMATURE GRANULOCYTES ABSOLUTE 0.01 10/3/uL (0.0-0.11); LYMPHOCYTES 22.8 %; LYMPHOCYTES ABSOLUTE 1.44 10/3/uL (0.67-4.30); MEAN CORPUS HGB CONC 36.2 g/dL (32.0-36.0); MEAN CORPUSCULAR HEMOGLOB 31.8 pg (26.0-34.0); MEAN CORPUSCULAR VOLUME 87.8 fL (80-100); MEAN PLATELET VOLUME 8.7 fL (9.2-13.0); MONOCYTES 16.6 %; MONOCYTES ABSOLUTE 1.05 10/3/uL (0.21-1.20); NEUTROPHILS 59.6 %; NEUTROPHILS ABSOLUTE 3.76 10/3/uL (2.02-8.40); PLATELET COUNT 374 10/3/uL (150-400); RBC DISTRIBUTION WIDTH 12.9 % (12.0-16.0); WHITE BLOOD CELLS 6.3 10/3/uL (4.5-10.5)
[2017-02-28 06:58] LABS: MANUAL DIFF NO %
[2017-02-28 07:19] LABS: A/G RATIO 0.8 (0.7-1.9); BUN (BLOOD UREA NITROGEN) 8 MG/DL (6-23); CALCIUM, SERUM 9.2 MG/DL (8.5-10.4); CHLORIDE, SERUM 101 MMOL/L (96-112); CO2 (CARBON DIOXIDE) 28 MMOL/L (24-34); CREATININE 0.68 MG/DL (0.70-1.30); GFR AFRICAN AMERICAN 159 ML/MIN (>=60); GFR NON AFRICAN AMERICAN 137 ML/MIN (>=60); GLOBULIN 3.9 G/DL (2.5-4.1); GLUCOSE, SERUM 97 MG/DL (60-99); SGOT(AST) 56 U/L (5-40); SGPT(ALT) 63 U/L (5-65); SODIUM, SERUM 134 MMOL/L (135-148); TOTAL BILIRUBIN 0.6 MG/DL (0-1.2); TOTAL PROTEIN 6.9 G/DL (6.0-8.5)
[2017-02-28 07:20] LABS: ALKALINE PHOSPHATASE 95 U/L (45-117); POTASSIUM, SERUM 4.5 MMOL/L (3.5-5.3)
[2017-03-01 06:58] LABS: BASOPHILS 0.1 %; BASOPHILS ABSOLUTE 0.01 10/3/uL (0.0-0.16); EOSINOPHILS 0.8 %; EOSINOPHILS ABSOLUTE 0.07 10/3/uL (0.0-0.53); HEMATOCRIT 40.8 % (40.0-51.0); HEMOGLOBIN 14.6 g/dL (13.6-17.8); IMMATURE GRANULOCYTES 0.2 %; IMMATURE GRANULOCYTES ABSOLUTE 0.02 10/3/uL (0.0-0.11); LYMPHOCYTES 18.8 %; MANUAL DIFF NO %; MEAN CORPUS HGB CONC 35.8 g/dL (32.0-36.0); MEAN CORPUSCULAR HEMOGLOB 31.2 pg (26.0-34.0); MEAN CORPUSCULAR VOLUME 87.2 fL (80-100); MEAN PLATELET VOLUME 8.6 fL (9.2-13.0); MONOCYTES 14.6 %; MONOCYTES ABSOLUTE 1.32 10/3/uL (0.21-1.20); NEUTROPHILS 65.5 %; NEUTROPHILS ABSOLUTE 5.93 10/3/uL (2.02-8.40); PLATELET COUNT 356 10/3/uL (150-400); RED CELL COUNT 4.68 10/6/uL (4.7-6.1); WHITE BLOOD CELLS 9.1 10/3/uL (4.5-10.5)
[2017-03-01 07:13] LABS: A/G RATIO 0.7 (0.7-1.9); ALBUMIN 2.7 G/DL (3.5-5.0); ALKALINE PHOSPHATASE 75 U/L (45-117); BUN (BLOOD UREA NITROGEN) 7 MG/DL (6-23); C-REACTIVE PROTEIN 10.4 MG/L (<8.0); CALCIUM, SERUM 8.5 MG/DL (8.5-10.4); CHLORIDE, SERUM 106 MMOL/L (96-112); CO2 (CARBON DIOXIDE) 26 MMOL/L (24-34); CREATININE 0.67 MG/DL (0.70-1.30); GFR AFRICAN AMERICAN 160 ML/MIN (>=60); GFR NON AFRICAN AMERICAN 138 ML/MIN (>=60); GLOBULIN 3.7 G/DL (2.5-4.1); GLUCOSE, SERUM 111 MG/DL (60-99); POTASSIUM, SERUM 4.1 MMOL/L (3.5-5.3); SGOT(AST) 30 U/L (5-40); SGPT(ALT) 45 U/L (5-65); SODIUM, SERUM 136 MMOL/L (135-148); TOTAL BILIRUBIN 0.2 MG/DL (0-1.2); TOTAL PROTEIN 6.4 G/DL (6.0-8.5)
[2017-03-01] MEDS ORDERED: P10 PO (12:07)
[2017-03-01] MEDS ORDERED: VANCOCIN HCL125 MG PO (12:08)
[2017-06-17] MEDS ORDERED: MTX2.5 PO (14:38)
[2017-06-17] MEDS ORDERED: FOLIC PO (14:38)
[2017-06-25] MEDS ORDERED: UCERIS9 MG PO (11:48)
[2017-06-25] MEDS ORDERED: DIFICID 200 MG200 MG PO (11:52)
[2017-06-25] MEDS ORDERED: CANASA1SUP PR (11:52)
[2017-06-25] MEDS ORDERED: SYMAX-SL0.125 MG SL (11:53)
== END 2017-03-01 15:18 | disposition home or self-care (01) | DRG 372 ==
LOC: 5SO 17:04
PROVIDERS: Hospitalist; Internal Medicine; Internal Medicine Gastroenterology
PROC: 0DB98ZX Excision of Duodenum, Via Natural or Artificial Opening Endoscopic, Diagnostic (ICD-10-PCS; principal; 2017-02-27 16:00)
PROC: 0DJD8ZZ Inspection of Lower Intestinal Tract, Via Natural or Artificial Opening Endoscopic (ICD-10-PCS; 2017-02-27 16:00)
DX: A04.7 Enterocolitis due to Clostridium difficile (principal); K51.011 Ulcerative (chronic) pancolitis with rectal bleeding; E46 Unspecified protein-calorie malnutrition; Z68.1 Body mass index [BMI] 19.9 or less, adult; E86.0 Dehydration; L70.9 Acne, unspecified; K21.9 Gastro-esophageal reflux disease without esophagitis
CPT/HCPCS: 74177; 80048; 80053; 81479; 81479-59; 82397; 82397-59; 83520; 83520-59; 83605; 83735; 84100; 84134; 84145; 85025; 86140; 87040; 87493; 87493-59; 88305; 88346; 88350; A9270-GY; C9113; J2405; J2550; J2920; Q9967

== ENCOUNTER 2017-03-10 10:15 | Inpatient (IN) | payer BC, SELFPAY ==
--- NOTE | ~2017-03-10 | CN ---
Consultation Report [facility] [address] [place]. [address] NAME: VANI ETIENNE : [birth year] STATUS : ADM Manju PAT#: [id number] AGE: 21 ADM/REG DATE : 03/10/17 MR#: [id number] REPORT SERV DATE: 03/10/17 DICTATED BY: TYREL JERRY DATE: 03/10/17 REPORT STATUS : Draft TRANSCRIBED BY: MODIman DATE: 03/10/17 CONSULTATION DATE OF CONSULTATION: 03/10/2017 HISTORY OF PRESENT ILLNESS: This is a 21-year-old male whom I am asked to evaluate for fulminant colitis. This young man presented to [facility] with severe diarrhea and had a stool that was positive for C difficile toxin. He had been on oral clindamycin and rifampin for a couple of years for skin issues, but he had been off it for at least eight months. He did not improve with C difficile treatment, so we went ahead and did a colonoscopy that showed severe pancolitis concerning for UC, although there were some serpiginous ulcers in the left side of the colon. Biopsies, however, revealed no granulomas, and serologies were consistent with UC. He was treated with Solu-Medrol 30 mg IV every 12 hours and improved enough to where he was able to go home and take oral prednisone. He is gradually back-slid over the eight or nine days since he has been home and now he is vomiting and is unable to keep food or fluid down. He is having about two dozen nonbloody watery stools daily. He had a repeat stool for C difficile on admission, it was negative , and he had one last week after oral vancomycin that was negative. He has developed some mild odynophagia over the past couple of days on high-dose steroids. This is concerning for candidal esophagitis. PPD was negative. PAST MEDICAL HISTORY: 1. Recent Clostridium difficile colitis. 2. Ulcerative colitis. PAST SURGICAL HISTORY: Status post adenoidectomy. MEDICATIONS: (On admission) Tylenol, Zofran, prednisone 30 mg b.i.d., Florastor, vancomycin 125 mg four times a day, Carafate suspension, and Restoril. ALLERGIES: AMOXICILLIN. FAMILY HISTORY: No GI malignancies or inflammatory bowel disease. SOCIAL HISTORY: No tobacco or alcohol. REVIEW OF SYSTEMS: Otherwise unremarkable. PHYSICAL EXAMINATION: GENERAL: He is thin but he does not appear toxic. His mother and father bedside. VITAL SIGNS: Afebrile. Consultation Report [facility] [place]. [address] NAME: VANI ETIENNE : [birth year] STATUS : ADM Manju PAT#: [id number] AGE: 21 ADM/REG DATE : 03/10/17 MR#: [id number] REPORT SERV DATE: 03/10/17 DICTATED BY: TYREL JERRY DATE: 03/10/17 REPORT STATUS : Draft TRANSCRIBED BY: MODL DATE: 03/10/17 LUNGS: Clear. CARDIOVASCULAR: Tachycardic with soft flow murmur. ABDOMEN: Soft and nontender. EXTREMITIES: No edema. LABORATORY DATA: White count 12.8, hemoglobin 18.2, and platelet count 390. C difficile toxin negative. Stool remarkable for over 100 leukocytes. IMPRESSION: 1. Fulminant ulcerative colitis. 2. Possible candidal esophagitis related to steroids. RECOMMENDATIONS: 1. Relative bowel rest with clear liquids. 2. High-dose IV steroids, Solu-Medrol 60 mg every 6 hours. 3. Serial CRPs. 4. Aggressive oral hydration. 5. Oral Diflucan. /MODL Tyrel Jerry M.D. / [id number] CC: MD Kunal Devine M.D.
--- NOTE | ~2017-03-10 | IDS ---
Interim Discharge Summary [facility] [address] [place]. [address] NAME: VANI ETIENNE : [birth year] STATUS : ADM IN [facility]#: [id number] AGE: 21 ADM/REG DATE : 03/10/17 MR#: [id number] REPORT SERV DATE: 03/16/17 DICTATED BY: RUDYMEGHAN WRIGHTOME DATE: 03/16/17 REPORT STATUS : Draft TRANSCRIBED BY: MODIman DATE: 03/16/17 ADMISSION DATE: 03/10/2017 DISCHARGE DATE: The patient is a 21-year-old male with a history of ulcerative colitis diagnosed last admission, who presented to the hospital with a complaint of diarrhea, dehydration, and ulcerative colitis flare. For further details, please refer to H and P dictated by Dr. Keene on 03/10/2017. HOSPITAL COURSE: Upon presentation to the hospital, the patient was diagnosed with ulcerative colitis flare, admitted on the Hospitalist Service for further management. GI service was subsequently consulted. For further details, please refer to consultation note dictated by Dr. Jerry on 03/10/2017. During the patient's last admission, when he was diagnosed with ulcerative colitis, plan at the time of discharge was for the patient to complete therapy for C. diff colitis with p.o. vancomycin, and after that the patient was to be started on steroid therapy in preparation for initiation of Remicade. However, the patient developed a flare prior to that plan being fully started. The hospital the patient was started on methylprednisolone and closely followed by GI. The patient has significantly improved. He is currently tolerating diet. His frequency of his bowel movements have significantly reduced and he still does have minimal bleeding with bowel movements. The patient was kept for extended period by GI to ensure that he does not become dehydrated. Plan at this time is for Remicade to be started in the outpatient setting. Given the patient's resolution of symptoms, his ability to tolerate diet, and significant improvement in his pain, the patient will likely be discharged tomorrow pending clearance by GI discharge. INTERIM DISCHARGE DIAGNOSES: 1. Ulcerative colitis flare. 2. Protein calorie malnutrition. 3. Underweight. DISCHARGE MEDICATIONS: Discharge medications to be determined by oncoming physician. DISPOSITION: the patient will likely be discharged home, however, the final discharge planning will be performed by oncoming physician. ELIAS Meghan Grant MD / [id number] CC: Interim Discharge Summary [place] [id number] [place] [address] NAME: LOWELLVANI REEDER : [birth year] STATUS : ADM IN PAT#: [id number] AGE: 21 ADM/REG DATE : 03/10/17 MR#: [id number] REPORT SERV DATE: 03/16/17 DICTATED BY: MEGHAN GRANT DATE: 03/16/17 REPORT STATUS : Draft TRANSCRIBED BY: MODL DATE: 03/16/17 MD Kunal Devine M.D.
--- NOTE | ~2017-03-10 | HP ---
History And Physical [place] [address] [facility] [place]. [address] NAME: VANI ETIENNE : [birth year] STATUS : ADM Manju PAT#: [id number] AGE: 21 ADM/REG DATE : 03/10/17 MR#: [id number] REPORT SERV DATE: 03/10/17 DICTATED BY: AUSTYN POWERS DATE: 03/10/17 REPORT STATUS : Draft TRANSCRIBED BY: MODIman DATE: 03/10/17 DATE OF ADMISSION: 03/10/2017 REASON FOR ADMISSION: Diarrhea, dehydration, and ulcerative colitis flare. HISTORY OF PRESENT ILLNESS: This is a 21-year-old white male, who was hospitalized 11 days, colonoscopy and biopsy revealed ulcerative colitis. He had serology test showing a p-ANCA that was elevated, a CRP of 22, and other serologies also suggestive of ulcerative colitis as well. He is to have Remicade started next week. He was discharged on 03/02/2017, by Dr. Cedeno who had treated him with IV fluid. He has continued to have nausea and vomiting, cannot keep anything down. He has excessive diarrhea with over 12 bowel movements a day. His source of the ulcerative colitis was blamed on the use of clindamycin which he is on for many years for a nodular cystic acne. He has some significant scarring from his acne in the past. PAST MEDICAL HISTORY: He was treated with metronidazole and had a failure of outpatient treatment, subsequently vancomycin. He is still taking the vancomycin. He had a history of adenoidectomy in the past. FAMILY HISTORY: Positive for obesity. SOCIAL HISTORY: [facility] [employer]. He is a resident of [facility]. He is entering the [employer]. He denies any alcohol. 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 He lives at home with his parents in [place]. No illicit drugs, smoking, or alcohol. MEDICATIONS: Include the followin. Acetaminophen p.r.n. 2. Zofran as needed for nausea. 3. Prednisone 10 mg p.o. daily. 4. Florastor 250 mg p.o. daily. 5. Vancomycin 125 mg p.o. q.i.d. for 14 days. REVIEW OF SYSTEMS: He has had some chest pain worse with vomiting and swallowing. Known with exertion. No shortness of breath. No cough, hemoptysis, melena, hematemesis, fits, seizures, convulsions, unilateral weakness. He has had weight loss 22 pounds since this started. He does have excessive diarrhea and the stools does show positive feces. SKIN: Without rash or excessive bruising. There is no evidence of arthridity. No rash. LYMPHATICS: There is no adenopathy palpable. The remainder of the review of systems is negative. History And Physical [address] [address] NAME: VANI ETIENNE : [birth year] STATUS : ADM Manju PAT#: [id number] AGE: 21 ADM/REG DATE : 03/10/17 MR#: [id number] REPORT SERV DATE: 03/10/17 DICTATED BY: AUSTYN POWERS DATE: 03/10/17 REPORT STATUS : Draft TRANSCRIBED BY: JEANNE DATE: 03/10/17 PHYSICAL EXAMINATION: GENERAL: Young white male, in no acute distress. VITAL SIGNS: His blood pressure was 115/75 with a heart rate of 100, and respiratory rate 18, afebrile. HEENT: EOMI. Sclerae clear. Conjunctivae pink. NECK: No bruit without any JVD. CHEST: Clear to A and P. HEART: Regular S1, S2 without murmur, gallop, or click. ABDOMEN: Firm diffusely bilaterally. Noted focal tenderness. No masses felt. SKIN: Nodular cystic scarring over his chest and abdomen from acne scarring. EXTREMITIES: Have no edema. Distal pulses intact in dorsalis pedis and posterior tibial. NEUROLOGICAL: He withdraws to plantar stimulation. [employer] is equal and symmetric bilaterally. Coordination appears to be intact. There is no tremor. He is symmetric neurologically bilaterally. LYMPHATICS: There is no adenopathy. LABORATORY DATA: The hemoglobin is 18.2, hematocrit 51.6, and white count 12.6. Sodium 136, potassium 3.9, the BUN was 11 and creatinine is 0.85. Stool showed greater than 100 white cells per high-powered field. His albumin is 2.9. ASSESSMENT: 1. Ulcerative colitis with acute flare. 2. Clostridium difficile colitis under treatment. 3. Chest pain, likely esophagitis. We will treat with Carafate suspension. 4. Dehydration. 5. Hemoconcentration. 6. Diarrhea. 7. Protein calorie malnutrition. Albumin down to 2.9. PLAN: IV fluid hydration. Pain medication for the abdominal pain. IV Solu-Medrol to try to help gain control of the ulcerative colitis. Consult Dr. Tyrel Jerry for consideration of starting Remicade during the hospitalization. The insurance company apparently just approved the Remicade for his treatment so far. DB/MODL Austyn Powers M.D. / [id number] CC: Arturo Owens M.D. Willy Magaña M.D.
--- NOTE | ~2017-03-10 | DS ---
Discharge Summary [facility] [address] [place]. [address] NAME: VANI ETIENNE : [birth year] STATUS : DIS IN PAT#: [id number] AGE: 21 ADM/REG DATE : 03/10/17 MR#: [id number] REPORT SERV DATE: 03/18/17 DICTATED BY: DATE: REPORT STATUS : Draft TRANSCRIBED BY: MODL DATE: 03/17/17 ADMISSION DATE: 03/10/2017 DISCHARGE DATE: 03/17/2017 DISCHARGE DIAGNOSES: 1. Ulcerative colitis flare. 2. Severe protein calorie malnutrition. 3. Underweight. 4. Leukocytosis. 5. Abdominal pain secondary to ulcerative colitis flare up. PROCEDURES AND IMAGING: None done at this time. CONSULTATIONS: GI, Dr. Jerry. HOSPITAL COURSE: Please refer to Dr. Keene's H and P dated on 03/10/2017 for complete details regarding the patient's admission. Next in brief, the patient was admitted by Dr. Keene for initial workup and management of his diarrhea, dehydration, and ulcerative colitis flare. This is a 21-year-old white male who has a history of being hospitalized for 11 days with a colonoscopy and biopsy which revealed ulcerative colitis. The patient was discharged on 02/20/2017. The patient has continued to have nausea and vomiting with excessive bowel movements over 12 per day. The patient had a 22-pound weight loss since initiation of this problem. The patient is C. diff negative. C-reactive protein is less than 2.9. Please see interim discharge dated 03/16/[address] Jayant Cedeno. The patient is currently tolerating his diet well. His frequency of bowel movements has greatly decreased and has now currently had 4 bowel movements in the last 24 hours. The patient states that he would have spontaneous diarrhea within 15 minutes after eating his meal. The patient also has been able to decrease on his pain medication. LABORATORY RESULTS: On 03/17/2017: Sodium is 139, potassium 3.9, chloride is 102, BUN is 15, creatinine is 0.52, GFR is 154, calcium is 9.0, total protein is 5.5, albumin is 2.3, globulin is 3.2, total bilirubin is 0.4, alkaline phosphatase is 86, ALT is 91, AST is 35. The patient's WBCs are currently 17.5 which is up from yesterday of 14.8. The patient has been getting massive doses of steroids for his ulcerative colitis. The patient states that he is eating everything off his tray and is able to ambulate in the hallway with no problems. PHYSICAL EXAMINATION: VITAL SIGNS: Blood pressure is 113/69, O2 saturation is 99% on room air, temperature is 97.3, heart rate is 103, blood pressure is 113/69, respirations are 16. HEENT: Head is atraumatic, normocephalic. Pupils are equal, round, reactive to light and accommodation. No xanthelasma. Sclerae are clear and nonicteric. Good dentition. NECK: Neck is supple with no obvious thyromegaly or lymphadenopathy. Neck veins are flat. CARDIAC: S1 and S2 with no obvious murmurs, rubs, or gallops. LUNGS: Clear to auscultation with normal respiratory effort. GI: Abdomen is soft and nontender. Active bowel sounds in all four quadrants. No palpable Discharge Summary [address] [address] NAME: VANI ETIENNE : [birth year] STATUS : DIS IN PAT#: [id number] AGE: 21 ADM/REG DATE : 03/10/17 MR#: [id number] REPORT SERV DATE: 03/18/17 DICTATED BY: DATE: REPORT STATUS : Draft TRANSCRIBED BY: JEANNE DATE: 03/17/17 organomegaly. EXTREMITIES: No significant edema, clubbing, or cyanosis. Dorsalis pedis and posterior tibial pulses are palpable bilaterally. MUSCULOSKELETAL: The patient moves all extremities x4. He is ambulatory without assistance. No difficulties with balance. SKIN: Skin is dry and intact, normal color and turgor. NEURO/PSYCH. Alert and oriented x4. Pleasant and appropriate. Cranial nerves 2 through 12 are grossly intact. Affect is bright. No apparent anxiety or depression. DISCHARGE MEDICATIONS: Florastor 250 mg daily; vancomycin dose taper 125 mg p.o. t.i.d. for a week, then 125 mg p.o. b.i.d. for a week, then 125 mg p.o. daily for a week, then 125 mg p.o. every other day for a week; Lialda 1.2 g three tablets p.o. q.a.m.; prednisone 60 mg daily; Zofran 4 mg every six hours p.r.n. nausea and vomiting; and Tylenol 500 mg p.o. q.4 hours p.r.n. ALLERGIES: THE PATIENT IS ALLERGIC TO AMOXICILLIN FOR WHICH HE HAS HIVES. FOLLOWUP: The patient is to follow up with his PCP in 7 to 10 days. GI will call and schedule Remicade dosing on 03/19/2017, and a 2-week followup. If the patient should have any more severe abdominal pain or bleeding or intractable nausea and vomiting, he is to call GI or to present to the emergency department. Approximately 40 minutes has been spent coordinating discharge care of this patient including ksar-wo-wazo encounter and summarization of the discharge. DICTATED BY: Martha Brand NP SLC/MODL Martha Brand NP / [id number] CC: MD Kunal Sheldon M.D.
[~2017-03-10 10:15] MED LIST: FLAG500TAB PO; LEVSINTAB PO; P10 PO; PROBIOTIC CAPSULE PO; VANCOCIN HCL125 MG PO; ZOFRAN ODT4 MG PO
[2017-03-10 12:14] LABS: BASOPHILS 0.1 %; BASOPHILS ABSOLUTE 0.01 10/3/uL (0.0-0.16); EOSINOPHILS 0.5 %; EOSINOPHILS ABSOLUTE 0.07 10/3/uL (0.0-0.53); IMMATURE GRANULOCYTES 0.3 %; IMMATURE GRANULOCYTES ABSOLUTE 0.04 10/3/uL (0.0-0.11); LYMPHOCYTES ABSOLUTE 2.44 10/3/uL (0.67-4.30); MEAN CORPUS HGB CONC 35.3 g/dL (32.0-36.0); MEAN CORPUSCULAR HEMOGLOB 31.1 pg (26.0-34.0); MEAN CORPUSCULAR VOLUME 88.1 fL (80-100); MONOCYTES ABSOLUTE 1.54 10/3/uL (0.21-1.20); NEUTROPHILS 68.1 %; NEUTROPHILS ABSOLUTE 8.74 10/3/uL (2.02-8.40); PLATELET COUNT 390 10/3/uL (150-400); RBC DISTRIBUTION WIDTH 12.9 % (12.0-16.0)
[2017-03-10 12:15] LABS: ER CBC TAT 0 Hrs 11 Mins; HEMATOCRIT 51.6 % (40.0-51.0); HEMOGLOBIN 18.2 g/dL (13.6-17.8); MANUAL DIFF NO %; RED CELL COUNT 5.86 10/6/uL (4.7-6.1); WHITE BLOOD CELLS 12.8 10/3/uL (4.5-10.5)
[2017-03-10 12:29] LABS: A/G RATIO 0.7 (0.7-1.9); ALBUMIN 2.9 G/DL (3.5-5.0); ALKALINE PHOSPHATASE 117 U/L (45-117); BUN (BLOOD UREA NITROGEN) 11 MG/DL (6-23); CHLORIDE, SERUM 98 MMOL/L (96-112); CO2 (CARBON DIOXIDE) 34 MMOL/L (24-34); CREATININE 0.85 MG/DL (0.70-1.30); DIRECT BILIRUBIN < 0.1 MG/DL (0.0-0.4); GFR AFRICAN AMERICAN 145 ML/MIN (>=60); GFR NON AFRICAN AMERICAN 125 ML/MIN (>=60); GLOBULIN 4.1 G/DL (2.5-4.1); GLUCOSE, SERUM 86 MG/DL (60-99); INDIRECT BILIRUBIN(NOT ORDER) 0.3 MG/DL (0.1-0.9); POTASSIUM, SERUM 3.9 MMOL/L (3.5-5.3); SGOT(AST) 21 U/L (5-40); SGPT(ALT) 40 U/L (5-65); SODIUM, SERUM 136 MMOL/L (135-148); TOTAL BILIRUBIN 0.4 MG/DL (0-1.2)
[2017-03-10] MEDS ORDERED: FLORASTOR250 MG PO (13:45)
[2017-03-10] MEDS ORDERED: ACET500CAP PO (13:45)
[2017-03-10 17:25] LABS: C-REACTIVE PROTEIN 66.3 MG/L (<8.0)
[2017-03-11 06:13] LABS: BASOPHILS 0.1 %; BASOPHILS ABSOLUTE 0.01 10/3/uL (0.0-0.16); EOSINOPHILS 0 %; HEMATOCRIT 40.8 % (40.0-51.0); HEMOGLOBIN 14.5 g/dL (13.6-17.8); IMMATURE GRANULOCYTES 0.3 %; IMMATURE GRANULOCYTES ABSOLUTE 0.03 10/3/uL (0.0-0.11); LYMPHOCYTES 10.1 %; LYMPHOCYTES ABSOLUTE 1.03 10/3/uL (0.67-4.30); MANUAL DIFF NO %; MEAN CORPUS HGB CONC 35.5 g/dL (32.0-36.0); MEAN CORPUSCULAR HEMOGLOB 31.3 pg (26.0-34.0); MEAN CORPUSCULAR VOLUME 87.9 fL (80-100); MEAN PLATELET VOLUME 8.1 fL (9.2-13.0); MONOCYTES 3.1 %; MONOCYTES ABSOLUTE 0.32 10/3/uL (0.21-1.20); NEUTROPHILS 86.4 %; NEUTROPHILS ABSOLUTE 8.82 10/3/uL (2.02-8.40); PLATELET COUNT 354 10/3/uL (150-400); RBC DISTRIBUTION WIDTH 12.6 % (12.0-16.0); RED CELL COUNT 4.64 10/6/uL (4.7-6.1); WHITE BLOOD CELLS 10.2 10/3/uL (4.5-10.5)
[2017-03-11 06:31] LABS: BUN (BLOOD UREA NITROGEN) 8 MG/DL (6-23); CALCIUM, SERUM 8.5 MG/DL (8.5-10.4); CHLORIDE, SERUM 102 MMOL/L (96-112); CO2 (CARBON DIOXIDE) 30 MMOL/L (24-34); CREATININE 0.69 MG/DL (0.70-1.30); GFR AFRICAN AMERICAN 158 ML/MIN (>=60); GFR NON AFRICAN AMERICAN 137 ML/MIN (>=60); POTASSIUM, SERUM 4.4 MMOL/L (3.5-5.3); SODIUM, SERUM 135 MMOL/L (135-148)
[2017-03-11 06:33] LABS: GLUCOSE, SERUM 137 MG/DL (60-99)
[2017-03-12 06:47] LABS: BASOPHILS 0.1 %; BASOPHILS ABSOLUTE 0.01 10/3/uL (0.0-0.16); EOSINOPHILS 0 %; HEMATOCRIT 41.5 % (40.0-51.0); HEMOGLOBIN 14.7 g/dL (13.6-17.8); IMMATURE GRANULOCYTES 0.7 %; IMMATURE GRANULOCYTES ABSOLUTE 0.12 10/3/uL (0.0-0.11); LYMPHOCYTES 10.3 %; LYMPHOCYTES ABSOLUTE 1.67 10/3/uL (0.67-4.30); MEAN CORPUS HGB CONC 35.4 g/dL (32.0-36.0); MEAN CORPUSCULAR HEMOGLOB 31.1 pg (26.0-34.0); MEAN CORPUSCULAR VOLUME 87.9 fL (80-100); MEAN PLATELET VOLUME 8.1 fL (9.2-13.0); MONOCYTES 4.8 %; MONOCYTES ABSOLUTE 0.78 10/3/uL (0.21-1.20); NEUTROPHILS 84.1 %; NEUTROPHILS ABSOLUTE 13.58 10/3/uL (2.02-8.40); PLATELET COUNT 356 10/3/uL (150-400); RBC DISTRIBUTION WIDTH 12.4 % (12.0-16.0); RED CELL COUNT 4.72 10/6/uL (4.7-6.1)
[2017-03-12 06:48] LABS: MANUAL DIFF NO %; WHITE BLOOD CELLS 16.2 10/3/uL (4.5-10.5)
[2017-03-12 06:58] LABS: A/G RATIO 0.7 (0.7-1.9); ALBUMIN 2.4 G/DL (3.5-5.0); ALKALINE PHOSPHATASE 98 U/L (45-117); BUN (BLOOD UREA NITROGEN) 7 MG/DL (6-23); CALCIUM, SERUM 8.5 MG/DL (8.5-10.4); CHLORIDE, SERUM 104 MMOL/L (96-112); CO2 (CARBON DIOXIDE) 31 MMOL/L (24-34); CREATININE 0.67 MG/DL (0.70-1.30); GFR AFRICAN AMERICAN 160 ML/MIN (>=60); GFR NON AFRICAN AMERICAN 138 ML/MIN (>=60); GLOBULIN 3.3 G/DL (2.5-4.1); GLUCOSE, SERUM 125 MG/DL (60-99); POTASSIUM, SERUM 3.5 MMOL/L (3.5-5.3); SGOT(AST) 24 U/L (5-40); SGPT(ALT) 48 U/L (5-65); SODIUM, SERUM 138 MMOL/L (135-148); TOTAL BILIRUBIN 0.4 MG/DL (0-1.2); TOTAL PROTEIN 5.7 G/DL (6.0-8.5)
[2017-03-13 06:30] LABS: BASOPHILS 0.1 %; BASOPHILS ABSOLUTE 0.01 10/3/uL (0.0-0.16); EOSINOPHILS 0 %; IMMATURE GRANULOCYTES 0.4 %; IMMATURE GRANULOCYTES ABSOLUTE 0.05 10/3/uL (0.0-0.11); LYMPHOCYTES ABSOLUTE 1.18 10/3/uL (0.67-4.30); MEAN CORPUS HGB CONC 35.1 g/dL (32.0-36.0); MEAN CORPUSCULAR HEMOGLOB 31.1 pg (26.0-34.0); MEAN CORPUSCULAR VOLUME 88.5 fL (80-100); MONOCYTES 7.9 %; MONOCYTES ABSOLUTE 0.93 10/3/uL (0.21-1.20); NEUTROPHILS 81.6 %; PLATELET COUNT 264 10/3/uL (150-400); RBC DISTRIBUTION WIDTH 12.4 % (12.0-16.0); RED CELL COUNT 4.18 10/6/uL (4.7-6.1); WHITE BLOOD CELLS 11.8 10/3/uL (4.5-10.5)
[2017-03-13 06:31] LABS: MANUAL DIFF NO %
[2017-03-13 06:45] LABS: A/G RATIO 0.7 (0.7-1.9); ALBUMIN 2.1 G/DL (3.5-5.0); BUN (BLOOD UREA NITROGEN) 8 MG/DL (6-23); CALCIUM, SERUM 7.9 MG/DL (8.5-10.4); CHLORIDE, SERUM 106 MMOL/L (96-112); CO2 (CARBON DIOXIDE) 29 MMOL/L (24-34); CREATININE 0.55 MG/DL (0.70-1.30); GFR AFRICAN AMERICAN 174 ML/MIN (>=60); GFR NON AFRICAN AMERICAN 150 ML/MIN (>=60); GLOBULIN 2.9 G/DL (2.5-4.1); GLUCOSE, SERUM 123 MG/DL (60-99); POTASSIUM, SERUM 3.7 MMOL/L (3.5-5.3); SGOT(AST) 24 U/L (5-40); SGPT(ALT) 53 U/L (5-65); SODIUM, SERUM 140 MMOL/L (135-148); TOTAL BILIRUBIN 0.3 MG/DL (0-1.2)
[2017-03-13 06:46] LABS: ALKALINE PHOSPHATASE 80 U/L (45-117)
[2017-03-14 04:49] LABS: BASOPHILS 0.1 %; BASOPHILS ABSOLUTE 0.01 10/3/uL (0.0-0.16); EOSINOPHILS 0 %; HEMATOCRIT 38.1 % (40.0-51.0); HEMOGLOBIN 13.4 g/dL (13.6-17.8); IMMATURE GRANULOCYTES 0.2 %; IMMATURE GRANULOCYTES ABSOLUTE 0.03 10/3/uL (0.0-0.11); LYMPHOCYTES 8.3 %; LYMPHOCYTES ABSOLUTE 1.03 10/3/uL (0.67-4.30); MEAN CORPUS HGB CONC 35.2 g/dL (32.0-36.0); MEAN CORPUSCULAR HEMOGLOB 31.2 pg (26.0-34.0); MEAN CORPUSCULAR VOLUME 88.8 fL (80-100); MONOCYTES 5.6 %; MONOCYTES ABSOLUTE 0.69 10/3/uL (0.21-1.20); NEUTROPHILS 85.8 %; NEUTROPHILS ABSOLUTE 10.58 10/3/uL (2.02-8.40); PLATELET COUNT 243 10/3/uL (150-400); RBC DISTRIBUTION WIDTH 12.3 % (12.0-16.0); RED CELL COUNT 4.29 10/6/uL (4.7-6.1); WHITE BLOOD CELLS 12.3 10/3/uL (4.5-10.5)
[2017-03-14 04:51] LABS: MANUAL DIFF NO %
[2017-03-14 05:05] LABS: A/G RATIO 0.7 (0.7-1.9); ALBUMIN 2.1 G/DL (3.5-5.0); ALKALINE PHOSPHATASE 82 U/L (45-117); BUN (BLOOD UREA NITROGEN) 5 MG/DL (6-23); C-REACTIVE PROTEIN 3.5 MG/L (<8.0); CALCIUM, SERUM 7.9 MG/DL (8.5-10.4); CHLORIDE, SERUM 108 MMOL/L (96-112); CO2 (CARBON DIOXIDE) 29 MMOL/L (24-34); CREATININE 0.47 MG/DL (0.70-1.30); GFR AFRICAN AMERICAN 185 ML/MIN (>=60); GFR NON AFRICAN AMERICAN 160 ML/MIN (>=60); GLUCOSE, SERUM 126 MG/DL (60-99); POTASSIUM, SERUM 3.8 MMOL/L (3.5-5.3); SGOT(AST) 24 U/L (5-40); SGPT(ALT) 58 U/L (5-65); SODIUM, SERUM 140 MMOL/L (135-148); TOTAL BILIRUBIN 0.3 MG/DL (0-1.2); TOTAL PROTEIN 5.1 G/DL (6.0-8.5)
[2017-03-15 06:13] LABS: HEMATOCRIT 41.1 % (40.0-51.0); HEMOGLOBIN 14.6 g/dL (13.6-17.8); MEAN CORPUS HGB CONC 35.5 g/dL (32.0-36.0); MEAN CORPUSCULAR HEMOGLOB 31.7 pg (26.0-34.0); MEAN CORPUSCULAR VOLUME 89.2 fL (80-100); MEAN PLATELET VOLUME 8.2 fL (9.2-13.0); PLATELET COUNT 272 10/3/uL (150-400); RBC DISTRIBUTION WIDTH 12.4 % (12.0-16.0); RED CELL COUNT 4.61 10/6/uL (4.7-6.1)
[2017-03-15 06:24] LABS: MANUAL DIFF YES %
[2017-03-15 07:04] LABS: BAND NEUTROPHILS 2 %; LYMPHOCYTES 9 %; LYMPHOCYTES ABSOLUTE (CALC) 1.44 10/3/uL (0.67-4.30); MONOCYTES 2 %; MONOCYTES ABSOLUTE (CALC) 0.32 10/3/uL (0.21-1.20); NEUTROPHILS ABSOLUTE (CALC) 14.24 10/3/uL (2.02-8.40); PLATELET ESTIMATE ADQ (ADEQUATE); RBC MORPHOLOGY NORM (NORMAL); SEGMENTED NEUTROPHIL (0) 87 %; TOTAL NUCLEATED CELLS 100
[2017-03-16 05:29] LABS: BASOPHILS 0.1 %; BASOPHILS ABSOLUTE 0.01 10/3/uL (0.0-0.16); EOSINOPHILS 0 %; HEMATOCRIT 39.1 % (40.0-51.0); HEMOGLOBIN 13.6 g/dL (13.6-17.8); IMMATURE GRANULOCYTES 0.5 %; IMMATURE GRANULOCYTES ABSOLUTE 0.07 10/3/uL (0.0-0.11); LYMPHOCYTES 10.4 %; LYMPHOCYTES ABSOLUTE 1.54 10/3/uL (0.67-4.30); MEAN CORPUS HGB CONC 34.8 g/dL (32.0-36.0); MEAN CORPUSCULAR HEMOGLOB 30.8 pg (26.0-34.0); MEAN CORPUSCULAR VOLUME 88.5 fL (80-100); MEAN PLATELET VOLUME 8.2 fL (9.2-13.0); MONOCYTES 5.8 %; MONOCYTES ABSOLUTE 0.86 10/3/uL (0.21-1.20); NEUTROPHILS 83.2 %; NEUTROPHILS ABSOLUTE 12.36 10/3/uL (2.02-8.40); PLATELET COUNT 298 10/3/uL (150-400); RBC DISTRIBUTION WIDTH 12.4 % (12.0-16.0); RED CELL COUNT 4.42 10/6/uL (4.7-6.1); WHITE BLOOD CELLS 14.8 10/3/uL (4.5-10.5)
[2017-03-16 05:30] LABS: MANUAL DIFF NO %
[2017-03-16 05:38] LABS: A/G RATIO 0.8 (0.7-1.9); ALBUMIN 2.3 G/DL (3.5-5.0); ALKALINE PHOSPHATASE 82 U/L (45-117); BUN (BLOOD UREA NITROGEN) 10 MG/DL (6-23); CALCIUM, SERUM 8.6 MG/DL (8.5-10.4); CHLORIDE, SERUM 105 MMOL/L (96-112); CO2 (CARBON DIOXIDE) 29 MMOL/L (24-34); CREATININE 0.45 MG/DL (0.70-1.30); GFR AFRICAN AMERICAN 189 ML/MIN (>=60); GFR NON AFRICAN AMERICAN 163 ML/MIN (>=60); GLOBULIN 2.9 G/DL (2.5-4.1); GLUCOSE, SERUM 118 MG/DL (60-99); POTASSIUM, SERUM 4.1 MMOL/L (3.5-5.3); SGOT(AST) 21 U/L (5-40); SGPT(ALT) 63 U/L (5-65); SODIUM, SERUM 140 MMOL/L (135-148); TOTAL BILIRUBIN 0.3 MG/DL (0-1.2); TOTAL PROTEIN 5.2 G/DL (6.0-8.5)
[2017-03-17 05:45] LABS: BASOPHILS 0.1 %; BASOPHILS ABSOLUTE 0.01 10/3/uL (0.0-0.16); EOSINOPHILS 0.2 %; EOSINOPHILS ABSOLUTE 0.03 10/3/uL (0.0-0.53); HEMATOCRIT 41.3 % (40.0-51.0); HEMOGLOBIN 14.5 g/dL (13.6-17.8); IMMATURE GRANULOCYTES 0.5 %; IMMATURE GRANULOCYTES ABSOLUTE 0.08 10/3/uL (0.0-0.11); LYMPHOCYTES 17.8 %; LYMPHOCYTES ABSOLUTE 3.12 10/3/uL (0.67-4.30); MEAN CORPUS HGB CONC 35.1 g/dL (32.0-36.0); MEAN CORPUSCULAR HEMOGLOB 31.1 pg (26.0-34.0); MEAN CORPUSCULAR VOLUME 88.6 fL (80-100); MEAN PLATELET VOLUME 8.2 fL (9.2-13.0); MONOCYTES 8.9 %; MONOCYTES ABSOLUTE 1.55 10/3/uL (0.21-1.20); NEUTROPHILS 72.5 %; NEUTROPHILS ABSOLUTE 12.69 10/3/uL (2.02-8.40); PLATELET COUNT 271 10/3/uL (150-400); RBC DISTRIBUTION WIDTH 12.7 % (12.0-16.0); RED CELL COUNT 4.66 10/6/uL (4.7-6.1); WHITE BLOOD CELLS 17.5 10/3/uL (4.5-10.5)
[2017-03-17 05:46] LABS: MANUAL DIFF NO %
[2017-03-17 06:04] LABS: A/G RATIO 0.7 (0.7-1.9); ALBUMIN 2.3 G/DL (3.5-5.0); ALKALINE PHOSPHATASE 86 U/L (45-117); CHLORIDE, SERUM 102 MMOL/L (96-112); CO2 (CARBON DIOXIDE) 29 MMOL/L (24-34); CREATININE 0.52 MG/DL (0.70-1.30); GFR AFRICAN AMERICAN 178 ML/MIN (>=60); GFR NON AFRICAN AMERICAN 154 ML/MIN (>=60); GLOBULIN 3.2 G/DL (2.5-4.1); POTASSIUM, SERUM 3.9 MMOL/L (3.5-5.3); SGOT(AST) 35 U/L (5-40); SGPT(ALT) 91 U/L (5-65); SODIUM, SERUM 139 MMOL/L (135-148); TOTAL BILIRUBIN 0.4 MG/DL (0-1.2); TOTAL PROTEIN 5.5 G/DL (6.0-8.5)
[2017-03-17 06:05] LABS: BUN (BLOOD UREA NITROGEN) 15 MG/DL (6-23); GLUCOSE, SERUM 75 MG/DL (60-99)
[2017-03-17] MEDS ORDERED: LIALDA1.2 GM PO (14:50)
[2017-03-17] MEDS ORDERED: REST15 PO (14:51)
[2017-03-17] MEDS ORDERED: P10 PO (14:55)
[2017-06-17] MEDS ORDERED: FOLIC PO (14:38)
[2017-06-17] MEDS ORDERED: MTX2.5 PO (14:38)
[2017-06-25] MEDS ORDERED: UCERIS9 MG PO (11:48)
[2017-06-25] MEDS ORDERED: DIFICID 200 MG200 MG PO (11:52)
[2017-06-25] MEDS ORDERED: CANASA1SUP PR (11:52)
[2017-06-25] MEDS ORDERED: SYMAX-SL0.125 MG SL (11:53)
== END 2017-03-17 15:36 | disposition home or self-care (01) | DRG 385 ==
LOC: ER 10:15 → 5SO 14:27
PROVIDERS: Emergency Medicine; Hospitalist; Internal Medicine; Internal Medicine Gastroenterology
DX: K51.90 Ulcerative colitis, unspecified, without complications (principal); E43 Unspecified severe protein-calorie malnutrition; B37.81 Candidal esophagitis; A04.7 Enterocolitis due to Clostridium difficile; R13.10 Dysphagia, unspecified; Z68.1 Body mass index [BMI] 19.9 or less, adult; E86.0 Dehydration; L70.0 Acne vulgaris; R63.4 Abnormal weight loss; R00.0 Tachycardia, unspecified; Z98.890 Other specified postprocedural states; Z79.52 Long term (current) use of systemic steroids; Z88.1 Allergy status to other antibiotic agents; Z79.899 Other long term (current) drug therapy
CPT/HCPCS: 80048; 80053; 82248; 83690; 85025; 86140; 87045; 87046; 87046-59; 87328; 87329; 87493; 87493-59; 87899; 87899-59; 89055; 96374; 99284; A9270-GY; C9113; J1170; J2405; J2550; J2765; J2920; J2930; J3480

== ENCOUNTER 2017-07-01 18:58 | Inpatient (IN) | payer BC ==
[~2017-07-01] VITALS: Ht 177.8 cm; Wt 59.4 kg
--- NOTE | ~2017-07-01 | HP ---
History And Physical [place] [id number] [facility] [place]. [address] NAME: VANI ETIENNE : [birth year] STATUS : ADM Manju PAT#: [id number] AGE: 21 ADM/REG DATE : 07/01/17 MR#: [id number] REPORT SERV DATE: 07/02/17 DICTATED BY: KILLIAN ARVIZU DATE: 07/02/17 REPORT STATUS : Draft TRANSCRIBED BY: MODL DATE: 07/02/17 DATE OF ADMISSION: 07/01/2017 CHIEF COMPLAINT: Weakness, nausea, pain. HISTORY OF PRESENT ILLNESS: This patient has a history of ulcerative colitis diagnosed in 01/2017. Previously, he had received clindamycin for two years for skin issues for cystic acne. He was found to have a toxigenic strain of C. diff. It did not improve on vancomycin. Colonoscopy showed changes consistent with inflammatory bowel disease, treated with high-dose steroids. Also vancomycin. He received tapering doses of vancomycin over six weeks. Eventually, reached every other day vancomycin. Colonoscopy on 06/12 showed erythema in the rectum but return of vascularity throughout the colon. Marked improvement from previous exam. Biopsies showed moderate inflammation. C. difficile was again positive. He was treated with Dificid. He has improved, having one to two stools a day. However, he feels weak with vomiting and cramping pain. Refractory to outpatient management. He received a second Remicade two days ago. He has cystic acne. We have been reticent to give him antibiotics because of recurrent C. diff. MEDICATIONS: At home, prednisone 10 mg. He gets Remicade, methotrexate 10 mg once a week. PHYSICAL EXAMINATION: VITAL SIGNS: Temp 98, blood pressure 102/50, pulse is now went from 92 to 84. HEENT: He has significant cystic acne with some erythema and pustules on his neck, under his chin. He has this area on his trunk. Pupils equal, reactive to light and accommodation. Trachea midline. CHEST: Clear to A and P. CARDIAC: Normal. ABDOMEN: Soft. Normal bowel sounds. Nontender. EXTREMITIES: Without deformity or edema. LABORATORY DATA: White count 15,100, potassium 3.4, BUN 10. IMPRESSION: 1. The patient with severe chronic ulcerative colitis with superimposed C. diff, relapse of C. diff, now on Dificid. 2. Dehydration. 3. Abdominal pain. 4. Severe cystic acne with problems with giving recurrent antibiotics because of C. difficile. PLAN: 1. IV fluids. 2. We will give Infectious Disease consult to see if they have any ideas on antibiotic treatment for his skin in the presence of recurrent C. difficile infection. History And Physical [address] [place]. [address] NAME: VANI ETIENNE : [birth year] STATUS : ADM Manju PAT#: [id number] AGE: 21 ADM/REG DATE : 07/01/17 MR#: [id number] REPORT SERV DATE: 07/02/17 DICTATED BY: KILLIAN ARVIZU DATE: 07/02/17 REPORT STATUS : Draft TRANSCRIBED BY: JEANNE DATE: 07/02/17 MG/JEANNE Killian Arvizu M.D. / [id number] CC: Willy Cherry M.D.
--- NOTE | ~2017-07-01 | DS ---
Discharge Summary [facility] [address] [place]. [address] NAME: VANI ETIENNE : [birth year] STATUS : ADM Manju PAT#: [id number] AGE: 21 ADM/REG DATE : 07/01/17 MR#: [id number] REPORT SERV DATE: 07/04/17 DICTATED BY: KILLIAN ARVIZU DATE: 07/04/17 REPORT STATUS : Draft TRANSCRIBED BY: MODIman DATE: 07/04/17 ADMISSION DATE: 07/01/2017 DISCHARGE DATE: DISCHARGE DIAGNOSES: 1. Ulcerative colitis. 2. Clostridium difficile infection. 3. Dehydration. 4. Severe acne vulgaris, cystic acne. HISTORY OF PRESENT ILLNESS: This patient has a history of ulcer colitis diagnosed in January 2017. He had received clindamycin for two years for skin issues for cystic acne. He was also found to have a toxigenic strain of C. diff. He had a recent colonoscopy showing changes consistent with inflammatory bowel disease. He was treated with high-dose steroids. Also, vancomycin for the C. diff. He received tapering doses of vancomycin over six weeks. He was also started on Remicade. Colonoscopy on 06/12/2017 showed erythema in the rectum, return of vascularity throughout the colon. Marked improvement from previous exam. Biopsy showed moderate inflammation. C. difficile was again positive after having being negative. He was switched to Dificid. He was having one to two stools a day. However, he began having cramping pain and vomiting. He received Remicade two days prior to admission. At home, he was off prednisone, but then restarted on 10 mg daily. He receives methotrexate once a week. On admitting physical, his blood pressure was 102/50, pulse had been up in the one teens, 110 to 120. Severe cystic acne with erythema and pustules on his neck. His abdomen was soft and nontender. HOSPITAL COURSE AND ASSESSMENT: The patient was continued on his Dificid. We gave him some stress steroids. He was seen by Dr. Kris Abbott, who thought that perhaps he could be treated with Bactrim to treat acne vulgaris with superinfection without provoking recurrent C. diff. It was unclear whether the C. difficile was actually pathogenic or just colonization. He has responded to Dificid in the past. Also responded to Remicade. His previous Remicade trough level was in the 8 range, which was somewhat on the low side. With IV fluids, his creatinine dropped from 0.72 to 0.51. His albumin is 2.6. He was started on nutritional supplements. He improved. We also started him on dronabinol for his appetite. That improved. He was having no more pain and he was eating well. MR enterography did not show any evidence of small-bowel disease consistent with Crohn's. His colon looked much improved. PLAN: 1. He will be dismissed on continue his Uceris at 9 mg daily. 2. Decrease prednisone to 5 mg daily, taper off. 3. He may have to get some steroid withdrawal and then we continued Remicade at a four- week interval. 4. We will try Bactrim DS for his acne vulgaris with close monitoring for possible recurrent C. difficile infection. He will also continue his Canasa suppository. Condition improved. Discharge Summary [address] [address] NAME: LOWELLROMINASARAH REEDER : 89 STATUS : ADM Manju PAT#: [id number] AGE: 21 ADM/REG DATE : 07/01/17 MR#: [id number] REPORT SERV DATE: 07/04/17 DICTATED BY: KILLIAN ARVIZU DATE: 07/04/17 REPORT STATUS : Draft TRANSCRIBED BY: JEANNE DATE: 07/04/17 /JEANNE Killian Arvizu M.D. / [id number] CC: Willy Cherry M.D.
--- NOTE | ~2017-07-01 | CN ---
Consultation Report [facility] [address] [place]. [address] NAME: VANI ETIENNE : [birth year] STATUS : ADM Manju PAT#: [id number] AGE: 21 ADM/REG DATE : 07/01/17 MR#: [id number] REPORT SERV DATE: 07/02/17 DICTATED BY: JULES MEDEIROS DATE: 07/02/17 REPORT STATUS : Draft TRANSCRIBED BY: MODL DATE: 07/02/17 INFECTIOUS DISEASE CONSULT DATE OF CONSULTATION: 07/02/2017 REASON FOR REFERRAL: Evaluation and treatment of acne vulgaris in the setting of a positive Clostridium difficile. HISTORY OF PRESENT ILLNESS: The patient is a 21-year-old male. He has a history of severe acne vulgaris since childhood. He has taken and tried multitude of treatments including Accutane and multiple antibiotics over the years. He took clindamycin and had good results with that and the acne seemed to have improve significantly by age 19 and not trouble him nearly as much; however, he had abrupt onset of gastrointestinal symptoms, abdominal cramping, diarrhea in January and february this year and was admitted and found to have ulcerative colitis on imaging. He was 1st treated with steroids, methotrexate, and then started on Remicade and with the addition of Remicade about 3-4 months ago, his acne vulgaris has flared up again and gotten the most severe these ever had, it was spread down to his upper abdomen all the way down his back. He states he has tried acne treatments prescribed by a local [place] including Dr. Hahn without really helping it much among antibiotics, he has tried doxycycline without any benefit, as stated clindamycin has worked in the past; however, Clostridium difficile assay has been found to be positive on several occasions including late May, so clindamycin has not been restarted. He just had a colonoscopy, overall disease look much better. There is no evidence of C diff, but a stool was submitted for in late May and found to be positive, so he has been admitted. He is on oral vancomycin at present. He has also been started on Ancef for reasons that I am uncertain of. PAST MEDICAL HISTORY: Otherwise unremarkable. MEDICATIONS: As described above. ALLERGIES: HE REPORTS AN ALLERGY TO AMOXICILLIN. SOCIAL HISTORY: He is currently a student, nonsmoker, no history of alcohol or substance abuse. He is single. FAMILY HISTORY: Noncontributory. PHYSICAL EXAMINATION: GENERAL: Nontoxic adult male, in no acute distress. He is alert oriented x3. VITAL SIGNS: His temperature here has been normal 98.4 at present with a pulse 76, respirations 14, blood pressure 98/58, weight 59 kg. HEENT: Sclerae are clear. LUNGS: Clear. Consultation Report [place] [address] [place]. [address] NAME: VANI ETIENNE : [birth year] STATUS : ADM Manju PAT#: [id number] AGE: 21 ADM/REG DATE : 07/01/17 MR#: [id number] REPORT SERV DATE: 07/02/17 DICTATED BY: JULES MEDEIROS DATE: 07/02/17 REPORT STATUS : Draft TRANSCRIBED BY: JEANNE DATE: 07/02/17 HEART: Regular rate and rhythm. ABDOMEN: Soft, nontender. Positive bowel sounds. SKIN: Shows typical changes for acne vulgaris, all across his lower face, his neck, all the way down his entire back, and then his chest to his upper abdomen, now those appear to be overtly affected and no cellulitis associated with them at present. LABORATORY DATA: White blood cell count 15.1, hematocrit 40.3, platelets 421, BUN and creatinine 10 and 0.72. IMPRESSION: 1. Severe acne vulgaris that has markedly worsened on Remicade and methotrexate. 2. Clostridium difficile, really sounds like colonization rather than actual colitis at present. RECOMMENDATIONS: 1. Reasonable to cover a bit longer with oral vancomycin. 2. We will try Septra to see if that could help the acne vulgaris. 3. Follow the patient with you. I appreciate very much your consulting on this patient. DANA/JEANNE Jules Medeiros M.D. / [id number] CC: Kunal Peters M.D.
[~2017-07-01 18:58] MED LIST changes: +ACET500CAP PO; +CANASA1SUP PR; +DIFICID 200 MG200 MG PO; +FLORASTOR250 MG PO; +FOLIC PO; +LIALDA1.2 GM PO; +MTX2.5 PO; +REST15 PO; +SYMAX-SL0.125 MG SL; +UCERIS9 MG PO
[2017-07-01 22:35] LABS: BASOPHILS 0.2 %; BASOPHILS ABSOLUTE 0.03 10/3/uL (0.0-0.16); EOSINOPHILS 0.6 %; EOSINOPHILS ABSOLUTE 0.09 10/3/uL (0.0-0.53); HEMATOCRIT 40.3 % (40.0-51.0); IMMATURE GRANULOCYTES 0.2 %; IMMATURE GRANULOCYTES ABSOLUTE 0.03 10/3/uL (0.0-0.11); LYMPHOCYTES 23.9 %; MANUAL DIFF NO %; MEAN CORPUS HGB CONC 34.7 g/dL (32.0-36.0); MEAN CORPUSCULAR HEMOGLOB 31.5 pg (26.0-34.0); MEAN CORPUSCULAR VOLUME 90.6 fL (80-100); MEAN PLATELET VOLUME 8.4 fL (9.2-13.0); MONOCYTES 6.9 %; MONOCYTES ABSOLUTE 1.04 10/3/uL (0.21-1.20); NEUTROPHILS 68.2 %; NEUTROPHILS ABSOLUTE 10.29 10/3/uL (2.02-8.40); PLATELET COUNT 421 10/3/uL (150-400); RBC DISTRIBUTION WIDTH 12.6 % (12.0-16.0); RED CELL COUNT 4.45 10/6/uL (4.7-6.1); WHITE BLOOD CELLS 15.1 10/3/uL (4.5-10.5)
[2017-07-01] MEDS ORDERED: P10 PO (22:42)
[2017-07-01] MEDS ORDERED: PROBIOTIC PO (22:43)
[2017-07-01] MEDS ORDERED: ULTRAM50 PO (22:43)
[2017-07-01 22:52] LABS: A/G RATIO 0.7 (0.7-1.9); ALBUMIN 3.2 G/DL (3.5-5.0); ALKALINE PHOSPHATASE 96 U/L (45-117); BUN (BLOOD UREA NITROGEN) 10 MG/DL (6-23); CALCIUM, SERUM 9.1 MG/DL (8.5-10.4); CHLORIDE, SERUM 104 MMOL/L (96-112); CO2 (CARBON DIOXIDE) 27 MMOL/L (24-34); CREATININE 0.72 MG/DL (0.70-1.30); GFR AFRICAN AMERICAN 156 ML/MIN (>=60); GFR NON AFRICAN AMERICAN 134 ML/MIN (>=60); GLOBULIN 4.9 G/DL (2.5-4.1); GLUCOSE, SERUM 86 MG/DL (60-99); POTASSIUM, SERUM 3.4 MMOL/L (3.5-5.3); SGOT(AST) 29 U/L (5-40); SGPT(ALT) 56 U/L (5-65); SODIUM, SERUM 138 MMOL/L (135-148); TOTAL BILIRUBIN 0.4 MG/DL (0-1.2); TOTAL PROTEIN 8.1 G/DL (6.0-8.5)
[2017-07-01 23:16] LABS: SED RATE 56 MM/HR (0-15)
[2017-07-03 06:22] LABS: BASOPHILS 0.3 %; BASOPHILS ABSOLUTE 0.03 10/3/uL (0.0-0.16); EOSINOPHILS 1.5 %; EOSINOPHILS ABSOLUTE 0.15 10/3/uL (0.0-0.53); HEMOGLOBIN 12.1 g/dL (13.6-17.8); IMMATURE GRANULOCYTES 0.2 %; IMMATURE GRANULOCYTES ABSOLUTE 0.02 10/3/uL (0.0-0.11); LYMPHOCYTES 30.7 %; LYMPHOCYTES ABSOLUTE 3.13 10/3/uL (0.67-4.30); MEAN CORPUS HGB CONC 33.7 g/dL (32.0-36.0); MEAN CORPUSCULAR HEMOGLOB 31.2 pg (26.0-34.0); MEAN CORPUSCULAR VOLUME 92.5 fL (80-100); MEAN PLATELET VOLUME 8.3 fL (9.2-13.0); MONOCYTES 5.9 %; NEUTROPHILS 61.4 %; NEUTROPHILS ABSOLUTE 6.27 10/3/uL (2.02-8.40); PLATELET COUNT 314 10/3/uL (150-400); RED CELL COUNT 3.88 10/6/uL (4.7-6.1); WHITE BLOOD CELLS 10.2 10/3/uL (4.5-10.5)
[2017-07-03 06:23] LABS: HEMATOCRIT 35.9 % (40.0-51.0); MANUAL DIFF NO %
[2017-07-03 06:33] LABS: ALBUMIN 2.6 G/DL (3.5-5.0); CALCIUM, SERUM 8.7 MG/DL (8.5-10.4); CHLORIDE, SERUM 108 MMOL/L (96-112); CO2 (CARBON DIOXIDE) 23 MMOL/L (24-34); CREATININE 0.57 MG/DL (0.70-1.30); GFR AFRICAN AMERICAN 171 ML/MIN (>=60); GFR NON AFRICAN AMERICAN 148 ML/MIN (>=60); GLUCOSE, SERUM 86 MG/DL (60-99); POTASSIUM, SERUM 3.6 MMOL/L (3.5-5.3); SGOT(AST) 28 U/L (5-40); SGPT(ALT) 54 U/L (5-65); SODIUM, SERUM 139 MMOL/L (135-148); TOTAL BILIRUBIN 0.2 MG/DL (0-1.2)
[2017-07-03 06:34] LABS: A/G RATIO 0.7 (0.7-1.9); ALKALINE PHOSPHATASE 72 U/L (45-117); BUN (BLOOD UREA NITROGEN) 6 MG/DL (6-23); GLOBULIN 3.8 G/DL (2.5-4.1); TOTAL PROTEIN 6.4 G/DL (6.0-8.5)
[2017-07-04] MEDS ORDERED: BACTRIM DS1 TAB PO (12:18)
[2017-07-04] MEDS ORDERED: MARI2.5 PO (12:19)
== END 2017-07-04 13:46 | disposition home or self-care (01) | DRG 372 ==
LOC: ENRESERVDT → ENRESERVTM → ENRESERV → 5SO 21:10
PROVIDERS: Internal Medicine Gastroenterology
DX: A04.7 Enterocolitis due to Clostridium difficile (principal); K51.90 Ulcerative colitis, unspecified, without complications; E86.0 Dehydration; Z79.899 Other long term (current) drug therapy; Z79.52 Long term (current) use of systemic steroids; L70.0 Acne vulgaris
CPT/HCPCS: 74183; 80053; 85025; 85652; A9270-GY; A9577; J1170; J1610; J1720; J2405